=== PATIENT | female | born 1970 | race Caucasian/White ===

== ENCOUNTER → 2017-05-25 07:29 | Outpatient (CLI) | payer OTHER, SELFPAY ==
--- NOTE | 2017-05-25 07:33 | HPBI_ITS ---
MAMMOGRAPHY - BILATERAL SCREENING REASON FOR EXAM: Female, 46 years old. Routine annual screening examination. PERTINENT HISTORY: Non-contributory. TECHNIQUE: Digital bilateral breast talia (3D mammographic acquisition) in the CC and MLO projections. 2-D mediolateral oblique (MLO) and craniocaudad (CC) views of both breasts were obtained. CAD: Full Field Digital Mammography with Computer Added Detection was performed. COMPARISON: Comparison is made with prior study dated May 24, 2016. FINDINGS: Breast Composition: The breasts are extremely dense, which lowers the sensitivity of mammography. There are no dominant masses or suspicious calcifications. Stable bilateral benign appearing axillary lymph nodes. No other significant abnormalities are identified. There has been no significant change since the prior study. HPBI/SCREENING MAMM (CAD), BILAT IMPRESSION: Stable bilateral screening mammogram. Yearly follow-up mammogram recommended. (A) ASSESSMENT CATEGORY: BIRADS Category 2: Benign. A letter regarding these results will be sent to the patient by the facility within 30 days. Approximately 10% of breast cancers are not detected by mammography. A normal mammogram should not delay biopsy of a clinically suspicious abnormality. [id number] Electronically Signed: Marco Adams MD at 9:34 EDT Tel [phone], Service support ,
== END ==
PROVIDERS: Family Provider Preventive Medicine Occupational Medicine; PCP Preventive Medicine Occupational Medicine; Visit Provider Obstetrics & Gynecology
DX: Z12.31 Encounter for screening mammogram for malignant neoplasm of breast (principal)
CPT/HCPCS: 77063; 77067

== ENCOUNTER → 2018-06-19 07:11 | Outpatient (CLI) | payer OTHER, SELFPAY ==
--- NOTE | 2018-06-19 07:14 | BI_ITS ---
MAMMOGRAPHY - BILATERAL SCREENING REASON FOR EXAM: Female, 48 years old. Routine annual screening examination. PERTINENT HISTORY: Non-contributory. TECHNIQUE: Digital bilateral breast talia (3D mammographic acquisition) in the CC and MLO projections. 2-D mediolateral oblique (MLO) and craniocaudad (CC) views of both breasts were obtained. CAD: Full Field Digital Mammography with Computer Added Detection was performed. COMPARISON: Comparison is made with prior study dated May 25, 2017 and May 24, 2016. FINDINGS: Breast Composition: The breasts are extremely dense, which lowers the sensitivity of mammography. There are no dominant masses or suspicious calcifications. Stable small bilateral axillary lymph nodes. No other significant abnormalities are identified. There has been no significant change since the prior study. BI/SCREENING MAMM (CAD), BILAT IMPRESSION: Stable bilateral screening mammogram. Yearly follow-up mammogram recommended. (A) ASSESSMENT CATEGORY: BIRADS Category 2: Benign. A letter regarding these results will be sent to the patient by the facility within 30 days. Approximately 10% of breast cancers are not detected by mammography. A normal mammogram should not delay biopsy of a clinically suspicious abnormality. [id number] Electronically Signed: Marco Adams, at 10:29 EDT , Service support ,
== END ==
PROVIDERS: Family Provider Preventive Medicine Occupational Medicine; PCP Preventive Medicine Occupational Medicine; Referring Provider Obstetrics & Gynecology; Visit Provider Obstetrics & Gynecology
DX: Z12.31 Encounter for screening mammogram for malignant neoplasm of breast (principal)
CPT/HCPCS: 77063; 77067

== ENCOUNTER → 2019-06-21 | Outpatient (CLI) | payer OTHER, SELFPAY ==
[2018-11-17 08:12] VITALS: BMI 23.9
--- NOTE | 2019-06-21 07:12 | BI_ITS ---
MAMMOGRAPHY - BILATERAL SCREENING REASON FOR EXAM: Female, 49 years old. Routine annual screening examination. PERTINENT HISTORY: Non-contributory. TECHNIQUE: Digital bilateral breast avi (3D mammographic acquisition) in the CC and MLO projections. 2-D mediolateral oblique (MLO) and craniocaudad (CC) views of both breasts were obtained. CAD: Full Field Digital Mammography with Computer Added Detection was performed. COMPARISON: Comparison is made with prior study dated June 19, 2018 and May 25, 2017. FINDINGS: Breast Composition: The breasts are extremely dense, which lowers the sensitivity of mammography. There are no dominant masses or suspicious calcifications. Stable small benign appearing bilateral axillary lymph nodes. No other significant abnormalities are identified. There has been no significant change since the prior study. BI/SCREEN MAMM (CAD) W/AVI BILAT IMPRESSION: Stable bilateral screening mammogram. Yearly follow-up mammogram recommended. (A) ASSESSMENT CATEGORY: BIRADS Category 1: Negative. A letter regarding these results will be sent to the patient by the facility within 30 days. Approximately 10% of breast cancers are not detected by mammography. A normal mammogram should not delay biopsy of a clinically suspicious abnormality. [id number] Electronically Signed: Marco Adams, at 9:52 EDT , Service support ,
== END | disposition home or self-care (01) ==
LOC: OPBI 07:11
PROVIDERS: PCP Preventive Medicine Occupational Medicine; Referring Provider Obstetrics & Gynecology; Visit Provider Obstetrics & Gynecology
DX: Z12.31 Encounter for screening mammogram for malignant neoplasm of breast (principal)
CPT/HCPCS: 77063; 77067

== ENCOUNTER → 2020-08-15 07:14 | Outpatient (CLI) | payer OTHER, SELFPAY ==
[2018-11-17 08:12] VITALS: BMI 23.9
--- NOTE | 2020-08-15 07:17 | BI_ITS ---
MAMMOGRAPHY - BILATERAL SCREENING REASON FOR EXAM: Female, 50 years old. Routine annual screening examination. PERTINENT HISTORY: Non-contributory. TECHNIQUE: Digital bilateral breast avi (3D mammographic acquisition) in the CC and MLO projections. 2-D mediolateral oblique (MLO) and craniocaudad (CC) views of both breasts were obtained. CAD: Full Field Digital Mammography with Computer Added Detection was performed. COMPARISON: Comparison is made with prior examination dated 06/21/2019 and 06/19/2018. FINDINGS: Breast Composition: The breasts are extremely dense, which lowers the sensitivity of mammography. There are no dominant masses or suspicious calcifications. Stable small benign-appearing bilateral axillary lymph nodes. No other significant abnormalities are identified. There has been no significant change since the prior study. BI/SCRN MAMM (CAD)W/AVI BILAT IMPRESSION: Stable bilateral screening mammogram. Yearly follow-up mammogram recommended. (A) ASSESSMENT CATEGORY: BIRADS Category 2: Benign. A letter regarding these results will be sent to the patient by the facility within 30 days. Approximately 10% of breast cancers are not detected by mammography. A normal mammogram should not delay biopsy of a clinically suspicious abnormality. [id number] Electronically Signed: Marco Adams MD at 8:39 EDT , Service support ,
== END ==
PROVIDERS: PCP Preventive Medicine Occupational Medicine; Referring Provider Obstetrics & Gynecology; Visit Provider Obstetrics & Gynecology
DX: Z12.31 Encounter for screening mammogram for malignant neoplasm of breast (principal)
CPT/HCPCS: 77063; 77067

== ENCOUNTER → 2021-08-17 | Outpatient (CLI) | payer OTHER, SELFPAY ==
--- NOTE | 2021-08-17 07:08 | BI_ITS ---
MAMMOGRAPHY - BILATERAL SCREENING REASON FOR EXAM: Female, 51 years old. Routine annual screening examination. PERTINENT HISTORY: Non-contributory. TECHNIQUE: Digital bilateral breast avi (3D mammographic acquisition) in the CC and MLO projections. 2-D mediolateral oblique (MLO) and craniocaudad (CC) views of both breasts were obtained. CAD: Full Field Digital Mammography with Computer Added Detection was performed. COMPARISON: Comparison is made with prior study dated 08/15/2020 and 06/21/2019. FINDINGS: Breast Composition: The breasts are extremely dense, which lowers the sensitivity of mammography. There are no dominant masses or suspicious calcifications. Stable bilateral axillary lymph nodes. No other significant abnormalities are identified. There has been no significant change since the prior study. BI/SCRN MAMM (CAD)W/AVI BILAT IMPRESSION: Stable bilateral screening mammogram. Yearly follow-up mammogram recommended. (A) ASSESSMENT CATEGORY: BIRADS Category 2: Benign. A letter regarding these results will be sent to the patient by the facility within 30 days. Approximately 10% of breast cancers are not detected by mammography. A normal mammogram should not delay biopsy of a clinically suspicious abnormality. [id number] Electronically Signed: Marco Adams MD at 8:07 EDT ,
== END | disposition home or self-care (01) ==
PROVIDERS: PCP Preventive Medicine Occupational Medicine; Referring Provider Obstetrics & Gynecology; Visit Provider Obstetrics & Gynecology
DX: Z12.31 Encounter for screening mammogram for malignant neoplasm of breast (principal)
CPT/HCPCS: 77063; 77067

== ENCOUNTER → 2022-08-19 | Outpatient (CLI) | payer OTHER, SELFPAY ==
--- NOTE | 2022-08-19 07:18 | BI_ITS ---
MAMMOGRAPHY - BILATERAL SCREENING REASON FOR EXAM: Female, 52 years old. Routine annual screening examination. PERTINENT HISTORY: Non-contributory. TECHNIQUE: Digital bilateral breast avi (3D mammographic acquisition) in the CC and MLO projections. 2-D mediolateral oblique (MLO) and craniocaudad (CC) views of both breasts were obtained. CAD: Full Field Digital Mammography with Computer Added Detection was performed. COMPARISON: Comparison is made with prior study dated August 17, 2021 and August 15, 2020. FINDINGS: Breast Composition: The breasts are extremely dense, which lowers the sensitivity of mammography. There are no dominant masses or suspicious calcifications. Stable appearance of the small bilateral axillary lymph nodes. No other significant abnormalities are identified. There has been no significant change since the prior study. BI/SCRN MAMM (CAD)W/AVI BILAT IMPRESSION: Stable bilateral screening mammogram. Yearly follow-up mammogram recommended. (A) ASSESSMENT CATEGORY: BIRADS Category 2: Benign. A letter regarding these results will be sent to the patient by the facility within 30 days. Approximately 10% of breast cancers are not detected by mammography. A normal mammogram should not delay biopsy of a clinically suspicious abnormality. [id number] Electronically Signed: Marco Adams MD at 8:37 EDT ,
== END | disposition home or self-care (01) ==
PROVIDERS: PCP Preventive Medicine Occupational Medicine; Referring Provider Obstetrics & Gynecology; Visit Provider Obstetrics & Gynecology
DX: Z12.31 Encounter for screening mammogram for malignant neoplasm of breast (principal)
CPT/HCPCS: 77063; 77067

== ENCOUNTER → 2023-08-22 | Outpatient (CLI) | payer OTHER, SELFPAY ==
--- NOTE | 2023-08-22 07:28 | BI_ITS ---
MAMMOGRAPHY - BILATERAL SCREENING REASON FOR EXAM: Female, 53 years old. Routine annual screening examination. PERTINENT HISTORY: Non-contributory. TECHNIQUE: Digital bilateral breast avi (3D mammographic acquisition) in the CC and MLO projections. 2-D mediolateral oblique (MLO) and craniocaudad (CC) views of both breasts were obtained. CAD: Full Field Digital Mammography with Computer Added Detection was performed. COMPARISON: Comparison is made with prior study dated August 19, 2022 and August 17, 2021. FINDINGS: Breast Composition: The breasts are extremely dense, which lowers the sensitivity of mammography. There are no dominant masses or suspicious calcifications. Stable small benign-appearing bilateral axillary lymph nodes. No other significant abnormalities are identified. There has been no significant change since the prior study. BI/SCRN MAMM (CAD)W/AVI BILAT IMPRESSION: Stable bilateral screening mammogram. Yearly follow-up mammogram recommended. (A) ASSESSMENT CATEGORY: BIRADS Category 2: Benign. A letter regarding these results will be sent to the patient by the facility within 30 days. Approximately 10% of breast cancers are not detected by mammography. A normal mammogram should not delay biopsy of a clinically suspicious abnormality. [id number] Electronically Signed: Marco Adams MD at 8:36 EDT ,
== END | disposition home or self-care (01) ==
PROVIDERS: PCP Preventive Medicine Occupational Medicine; Referring Provider Obstetrics & Gynecology; Visit Provider Obstetrics & Gynecology
DX: Z12.31 Encounter for screening mammogram for malignant neoplasm of breast (principal)
CPT/HCPCS: 77063; 77067

== ENCOUNTER → 2024-04-12 | Outpatient (CLI) | payer OTHER, SELFPAY | END | disposition home or self-care (01) | LOC: LABSPEC 12:14 | PROVIDERS: PCP Preventive Medicine Occupational Medicine; Referring Provider Physician Assistant Surgical; Visit Provider Physician Assistant Surgical | DX: R82.90 Unspecified abnormal findings in urine (principal) | CPT/HCPCS: 87086 ==

== ENCOUNTER → 2024-08-22 | Outpatient (CLI) | payer OTHER, SELFPAY ==
--- NOTE | 2024-08-22 07:10 | BI_ITS ---
EXAM: SCRN MAMM (CAD)W/AVI BILAT DATE: 08/22/2024 CLINICAL HISTORY: F, Age 54 y/o , SCREENING No family history. BREAST CANCER RISK ASSESSMENT: Not assessed. TECHNIQUE: Bilateral screening digital breast tomosynthesis with 2D and 3D images. Computer aided detection. COMPARISON: Prior exam(s) dated August 22, 2023.. FINDINGS: TISSUE DENSITY: The breast tissue is extremely dense which lowers the sensitivity of mammography. Bilateral Breast Mammographic Findings: No significant masses, calcifications or other abnormalities are identified. Stable small benign-appearing axillary lymph nodes. No suspicious masses, areas of developing architectural distortion, or suspicious calcifications. There has been no significant interval change. BI/SCRN MAMM (CAD)W/AVI BILAT IMPRESSION: OVERALL FINAL ASSESSMENT: BIRADS 2 BENIGN FINDING RECOMMENDATION: Routine annual follow-up in 1 Year A letter with findings and recommendations will be mailed to the patient. Reading Location: [place] [id number]
--- OUTSIDE RECORDS SUMMARY | 2024-08-22 07:23 | XMS RPT_ITS | CCD ---
Author Organization [facility] Care Team Providers Care Bindery Manager Name Role Phone Humberto Robertson Primary Care Provider [phone] HUMBERTO ROBERTSON DO Primary Care Physician [phone] Humberto Robertson DO Primary Care Provider Humberto Robertson DO Primary Care Provider Humberto Robertson DO Primary Care Provider HUMBERTO ROBERTSON Primary Care Unavailable CRISTINA THAPA Attending Unavailable Humberto Robertson DO Primary Care Provider HENNA WHITE Attending Unavailable HUMBERTO ROBERTSON Primary Care Unavailable HENNA WHITE Attending Unavailable HUMBERTO ROBERTSON Primary Care Unavailable Humberto Robertson Primary Care Unavailable Luis Comer Attending Unavailable Humberto Robertson Referring Unavailable Humberto Robertson Primary Care Unavailable Gustabo Escalante Referring Unavailable Gustabo Escalante Attending Unavailable Cristina Thapa Referring Unavailable Cristina Thapa Attending Unavailable Humberto Robertson Primary Care Unavailable Humberto Robertson Primary Care Unavailable Gustabo Escalante Attending Unavailable Humberto Robertson Referring Unavailable Humberto Robertson Primary Care Unavailable Lila Sahu Attending Unavailable Humberto Robertson Referring Unavailable Medications Current Medications Medication Drug Class(es) Dates Sig (Normalized) Sig (Original) amLODIPine 5 mg / valsartan 160 mg oral tablet (11 sources) Dihydropyridine Calcium Channel Natty, Angiotensin 2 Receptor Natty Start: 03-26-2022 take 1 tablet by mouth once daily amlodipine-valsa rtan 5 mg-160 mg oral tablet Dose = 1 tab(s), Oral, qDay, # 90 tab(s), 3 Refill(s), Pharmacy: [facility]/pharmacy #[id number], Essential hypertension, 167, cm, 02/23/22 15:34:00 EST, Height, kg, 02/23/22 15:34:00 EST, Dosing Weight Start Date: 03/26/22 Status: Ordered Start: 11-17-2018 Amlodipine-Chanda sartan Active PO 90 November 17, 2018 8:12am Start: 07-22-2018 take 1 tablet by lisa th once daily amLODIPine-Valsartan 10-160 mg per tablet Take 1 tablet by mouth once daily. 3 07/22/2018 Active amLODIPine-valsa rtan (Exforge) 10-160 MG tablet Take by mouth. Active Comment on above: Take 1 tablet by lisa th once daily. Citracal Maximum + D 315 mg-6.25 mcg (250 intl units) oral tablet (1 source) Start: 02-23-2022 take 1 tablet by mouth twice daily Citracal Maximum + D 315 mg-6.25 mcg (250 intl units) oral tablet Dose = 1 tab(s), Oral, BID, # 60 tab(s), 0 Refill(s) Start Date: 02/23/22 Status: Ordered Inulin (6 sources) Start: 02-02-2019 FIBER CHOICE ORAL gram(s) =, Chewed, qDay, 0 Refill(s) 02/02/2019 Active Start: 02-02-2019 FIBER CHOICE O RAL gram(s) =, Chewed, qDay, 0 Refill(s) 0 02/02/2019 Active Start: 02-02-2019 Fiber Choice g nayan(s) =, Chewed, qDay, 0 Refill(s) Start Date: 02/02/19 Status: Ordered Comment on above: gram(s) =, Chewed, qDay, 0 Refill(s) magnesium oxide 250 mg oral tablet (1 source) Start: 02-23-2022 Magnesium 250 mg tablet Dose : 250 mg = 1 tab(s), Oral, qDay, with potassium 250mg total, 0 Refill(s) Start Date: 02/23/22 Status: Ordered MULTIPLE VITAMINS-MINERALS ER PO (4 sources) MULTIPLE VITAMINS-MINERALS ER PO Take by mouth. Active MULTIPLE VITAMIN S-MINERALS ER PO Take by mouth. 0 Active MULTIVITAMIN ORAL (5 sources) Start: 02-02-2019 take 1 tablet by mouth once daily MULTIVITAMIN ORAL Dose = 1 tab(s), Oral, Daily, 0 Refill(s) 02/02/2019 Active Start: 02-02-2019 take 1 tablet by lisa th once daily MULTIVITAMIN ORAL Dose = 1 tab(s), Oral, Daily, 0 Refill(s) 0 02/02/2019 Active Comment on above: Dose = 1 tab(s), Oral, Daily, 0 Refill(s) Multivitamin preparation (1 source) Start: 9 take 1 tablet by mouth once daily Multivitamin Dose = 1 tab(s), Oral, Daily, 0 Refill(s) Start Date: 02/02/19 Status: Ordered PARoxetine hydrochloride 10 mg oral tablet (1 source) Serotonin Reuptake Inhibitor Start: 3 PARoxetine 10 mg oral tablet Dose : 10 mg = 1 tab(s), Oral, qDay, Start with one half tab p.o. daily x2 to 3 days, then increase to 1 tab p.o. daily., # 30 tab(s), 1 Refill(s), Pharmacy: [facility]/pharmacy #[id number], Work-related stress, 167.5, cm, 08/24/22 15:22:00 EDT, Height Start Date: 08/24/22 Status: Ordered Completed/Discontinued Medications Medication Drug Class(es) Dates Sig (Normalized) Sig (Original) predniSONE 10 mg oral tablet (1 source) Start: 11-17-2018 End: 11-29-2018 Prednisone Discontinued 10 MG PO daily 30 November 17, 2018 8:18am November 29, 2018 12:07am Take 4 tabs once daily days 1-3 3 tabs once daily days 4-6 2 tabs once daily days 7-9 and 1 tab once daily days 10-12. Problems Active Problems Problem Classification Problem Date Documented Date Episodic/Chronic Allergic reactions (1 source) Irritant contact dermatitis due to plant; Translations: [Irritant contact dermatitis due to plants, except food] Episodic Essential hypertension (5 sources) Essential hypertension; Translations: [Hypertensive disorder] Onset: 12-10-2014 02-02-2019 Chronic Other and unspecified benign neoplasm (2 sources) Hemangioma of skin; Translations: [Hemangioma of skin and subcutaneous tissue] 05-26-2023 Episodic Other and unspecified benign neoplasm (3 sources) Multiple benign melanocytic nevi ; Translations: [Melanocytic nevi of right upper limb, including shoulder] 05-26-2023 Episodic Other female genital disorders (2 sources) Lesion of vulva; Translations: [Other specified noninflammatory disorders of vulva and perineum] Episodic Other screening for suspected conditions (not mental disorders or infectious disease) (7 sources) Patient encounter status; Translations: [Encounter for screening mammogram for malignant neoplasm of breast] Onset: 08-20-2024 Episodic Other skin disorders (3 sources) Seborrheic keratosis; Translations: [Other seborrheic keratosis] 05-26-2023 Episodic Other skin disorders (3 sources) Solar lentigo; Translations: [Other melanin hyperpigmentation] 05-26-2023 Episodic Residual codes; unclassified (1 source) History of atypical nevus; Translations: [Personal history of other specified conditions] 05-26-2023 Episodic Unclassified (2 sources) Patient encounter status 08-24-2022 Past or Other Problems Problem Classification Problem Date Documented Da te Episodic/Chronic Administrative/social admission (3 sources) Stress; Translations: [Persons encountering health services in other specified circumstances] Onset: 05-26-2023 08-24-2022 Episodic Cancer of cervix (7 sources) Cervical atypism; Translations: [Atypical squamous cells of undetermined significance on cytologic smear of cervix (ASC-US)] Onset: 07-26-2016 Resolved: 07-15-2017 07-15-2017 Episodic Genitourinary symptoms and ill-defined conditions (2 sources) Unspecified abnormal findings in urine; Translations: [Dysuria] Onset: 04-12-2024 Episodic Neoplasms of unspecified nature or uncertain behavior (3 sources) Neoplasm of uncertain behavior of skin; Translations: [Neoplasm of uncertain behavior of skin] Onset: 05-26-2023 05-26-2023 Episodic Other and unspecified benign neoplasm (1 source) Senile angioma; Translations: [Hemangioma of skin and subcutaneous tissue] Episodic Other and unspecified benign neoplasm (2 sources) Hemangioma of skin and subcutaneous tissue; Translations: [Hemangioma of skin and subcutaneous tissue] Onset: 05-26-2023 Episodic Other and unspecified benign neoplasm (2 sources) Melanocytic nevi of right upper limb, including shoulder; Translations: [Melanocytic nevi of right upper limb, including shoulder] Onset: 05-26-2023 Episodic Other and unspecified benign neoplasm (2 sources) Melanocytic nevi of trunk; Translations: [Melanocytic nevi of trunk] Onset: 05-26-2023 Episodic Other and unspecified benign neoplasm (2 sources) Melanocytic nevi of left upper limb, including shoulder; Translations: [Melanocytic nevi of left upper limb, including shoulder] Onset: 05-26-2023 Episodic Other and unspecified benign neoplasm (2 sources) Melanocytic nevi of right lower limb, including hip; Translations: [Melanocytic nevi of right lower limb, including hip] Onset: 05-26-2023 Episodic Other and unspecified benign neoplasm (2 sources) Melanocytic nevi of left lower limb, including hip; Translations: [Melanocytic nevi of left lower limb, including hip] Onset: 05-26-2023 Episodic Other skin disorders (2 sources) Other seborrheic keratosis; Translations: [Other seborrheic keratosis] Onset: 05-26-2023 Episodic Other skin disorders (2 sources) Other melanin hyperpigmentation; Translations: [Other melanin hyperpigmentation] Onset: 05-26-2023 Episodic Residual codes; unclassified (2 sources) Personal history of other specified conditions; Translations: [Personal history of other specified conditions] Onset: 05-26-2023 Episodic Results Test Name Value Interpretation Reference Range Facility 37 05-15-2024 37 Protecting Your Skin from the Sun The sun?s rays contain ultraviolet (UV) radiation that can damage our skin. There is no ?safe? ultraviolet ray. Even on cloudy days, UV radiation reaches the earth and can cause skin damage. Ultraviolet A (UVA) is primarily responsible for premature aging, wrinkles, and tanning, while ultraviolet B (UVB) causes sunburns. Both types can severely damage the skin and cause skin cancer. Sun exposure is the most preventable risk factor for all skin cancers, including melanoma. You can still have fun in the sun and decrease your risk for skin cancer. Apply water-resistant sunscreen generously with a Sun Protection Factor (SPF) of at least 30 that provides broad-spectrum protection from both ultraviolet A (UVA) and ultraviolet B (UVB) rays to all exposed skin. Re-apply every two hours, even on cloudy days, and after sweating or swimming. Sunscreens are not perfect because some ultraviolet light may still get through sunscreens, so they should not be used as a way of prolonging sun exposure. Seek shade when appropriate, remembering that the sun?s rays are the strongest between 10 AM and 4 PM. Wear sun protective clothing such as a long-sleeved shirt, pants, a wide-brimmed hat, and sunglasses, when possible. Some sunlight will get through your clothing. You can wear sunscreen underneath, or you can buy clothing that has been treated to give additional sun protection. Such clothing will have a UPF rating on the label. (e.g., www.Bioincept, Linksify.EventBoard om) Protect children from sun exposure by having them play in the shade, dressing them in protective clothing, and applying sunscreen. Use extra precaution when near water, snow, and sand. These surfaces reflect the damaging rays of the sun and can increase your chance of sunburn. Get vitamin D safely through a healthy diet that may include vitamin supplements. Don?t seek the sun for vitamin D. Avoid tanning beds. Ultraviolet light from the sun and tanning beds can cause wrinkling and skin cancer. If you want to look like you?ve been in the sun, consider using a sunless self-tanning product, but continue to use sunscreen with it. Perform a regular self skin exam. If you notice anything changing, growing, or bleeding on your skin, see a university professor. Skin cancer is very treatable when caught early. Examples of good broad-spectrum sunscreens: Blue Lizard Coppertone Spectra 3 [place] Block Neutrogena Ultra Sheer Dry Touch [facility] Block/Raheem Bennett MD What the active ingredients do: UVB blockers: padimate O homosalate, octyl methoxycinnamate, benzophenone octyl salicylate, phenylbenzimadazole sulfonic acid, octocrylene UVA blockers: oxybenzone, avobenzone (Parsol 1789) Physical blockers: titanium dioxide, zinc oxide (These are chemical-free sunscreens that reflect both UVA and UVB. These may be safest if you are allergic to some sunscreens. These may also be better for sensitive skin.) Normal [facility] Office Visiton 05-15-2024 Follow-up visit [id number] Mandi Bonilla 1970 F Date Provider Department Center 05/15/2024 58-HENNA WHITE [facility] None No family history on file Level of Service:45773 AR OFFICE/OUTPATIENT ESTABLISHED MOD MDM 30 MIN Reason for Visit and Comments: Skin Check [779] - William 05/26/2023 (kb) [facility] Progress Noteon 05-15-2024 Progress Note DATE OF SERVICE: 05/15/2024 PATIENT NAME: Mandi Bonilla : 1970 AGE: 53 y.o. CLINIC NUMBER: [id number] Visit type: Established patient Chief Complaint Patient presents with Skin Check [facility] 05/26/2023 (kb) Subjective HISTORY OF PRESENT ILLNESS: This is a 53 y.o. female who presents for evaluation of upper body check; last seen 05/26/2023. Patient denies any new changing, bleeding, or itching lesions. Patient has?h/o of ATN. Patient has no?h/o of AKs. ? Patient has no?personal h/o skin cancer. Patient has no?family h/o melanoma. Are you or ? No History of pacemaker/ defibrillator? No History of HIV/ Hep C? No Allergies to Lidocaine, Epinephrine, Latex or Adhesive? No Social History: Occupation: [employer]. Born/raised in [place]. Outdoor sports: no. 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 Patient does use additional sun protection Review of Systems There were no vitals filed for this visit. PHYSICAL EXAM GENERAL APPEARANCE:?Alert & oriented x3, pleasant. Well developed, well nourished. PSYCH: appropriate mood and affect DERMATOLOGY: (all measurements are in cm, unless otherwise noted) 1. Hemangioma of skin (2) Generalized, Left Flank Bright red vascular papule(s) Reassured and educated, benign finding. 2. Seborrheic keratosis (2) Generalized, Right Lower Back Escalera-brown waxy papule(s) and plaque(s) Reassured that this is a benign lesion and does not require any treatment. Educated that if the lesion changes color, becomes larger, bleeds, becomes bothersome or painful then it should be reevaluated. Patient expresses understanding and is agreeable to plan. 3. Solar lentigo (2) Generalized, Left Forearm - Posterior Light brown well-circumscribed macule(s) Educated and reassured, benign finding secondary to sun exposure. Patient educated on the proper use of sunscreen, SPF, and how often to reapply. Recommend use of OTC mineral sun block, like Neutrogena or La-Rob Posay. Patient advised to look for zinc or titanium as the active ingredient(s). Try to limit sun exposure to rehabilitator or late evening hours. Patient advised to perform self-skin checks and call for follow up appointment if any new or concerning lesions detected. 4. Encounter for skin care (2) Generalized, Right Forearm - Anterior SKIN TYPE: I Educated on signs of skin cancer, skin cancer causes, prevention, and risk of developing skin cancers in the future. Sun protection measures reviewed, recommended monthly self skin exams and annual full skin exam. 5. Multiple benign melanocytic nevi of both upper extremities, both lower extremities, and trunk (2) Chest - Medial (Center), Generalized Scattered uniform escalera/brown nevoid macules and papules; showing normal patterns with dermoscopy Reassured that this is a benign lesion and does not require any treatment. Educated that if the lesion changes color, becomes larger, bleeds, becomes bothersome or painful then it should be reevaluated. Patient expresses understanding and is agreeable to plan. Follow up in about 1 year (around 05/15/2025) for Recheck. Henna White PA-C 05/15/24 3:10 PM REFERRING MD: Normal [facility] Urine Cultureon 04-13-2024 URC Culture exhibits no growth. Normal [facility] Comment on above: Performed By: #### M [id number] #### [facility] Laboratory [address] [place], [address] Urgent Care Visit Reporton 0 04-12-2024 Urgent Care Visit Report [facility] [address], [address] [place], [place] [address] OFFICE VISIT Date of Service: 04/12/24 MR#: [id number] Acct: [id number] Name: MANDI BONILLA Rep #: [id number] : 1970 Provider: PENNY Chirinos Age/Sex: 53/F Location: [facility] Status: Signed Intake Vital Signs 04/12/24 09:38 Height 5 ft 5 in Weight: 189 lb 6 oz BMI 31.5 BP 136/70 H Blood Pressure Location Rt brachial Position Sitting Respiration 16 Pulse 79 Pulse Source NIBP Temp 98.4 F Temp Source Oral Pulse Oximetry (%) 98 Oxygen Delivery Method room air Intake Visit Reasons: CONCERN FOR UTI Chief Complaint: dysuria Corporate Legal Intern Required: No Is patient in pain?: No Allergies No Known Allergies Allergy (Verified 04/12/24 09:38) Medications ???Medication ???Instructions ???Recorded ???Confirmed ???Type amlodipine 10 mg-valsartan 160 mg PO #90 tabs 11/17/18 04/12/24 His tory tablet nitrofurantoin 1 cap PO Q12H 7 days #14 caps 03/1604/12/24 Rx monohydrate/macrocryst als 100 mg capsule Is last menstrual period known: No Post menopausal: Yes Patient : No Have you fallen in the past year?: No Nurse's Note: dysuria x 24 hours. concern for UTI. denies abd pain, back pain, fever PFSH Medical History Impetigo HTN (hypertension) Social History Smoking Status: Never smoker alcohol intake: never HPI HPI Chief Complaint: dysuria Details: MANDI BONILLA, is a 53 F who presents to the office today for complaint of dysuria and increasing urgency/frequency for the past 4 days. Patient denies hematuria. She has had no pelvic or abdominal pain. No fever, chills or sweats. No other associated symptoms or alleviating/aggravatin g factors. ROS Const Constitutional: No other (As above) Exam Const General: cooperative and healthy appearing Resp Effort Inspection: normal respiratory effort Auscultation: Bilateral: Clear to Auscultation Cardio Rate: regular rate Rhythm: regular rhythm GI Auscultation: normal bowel sounds General: No CVA tenderness Psych Appearance: grossly normal Mental Status: mental status grossly normal Coding Level of Care Code Off vis,est,level 3 Diagnoses Dysuria R30.0 Assessment and Plan Assessment and Plan (1) Dysuria: Status: Acute Orders: Orders POC Urinalysis Dip (Clinic) Today R30.0 - Dysuria Culture, Urine Today R82.90 - Unspecified abnormal findings in urine Medications: New nitrofurantoin monohyd/m-cryst 100 mg administer with a meal/food; swallow whole; do not open, crush, dissolve , or chew 1 cap PO Q12H 7 days 14 caps 0RF Plan Macrobid as prescribed today. Encouraged to get plenty of rest, drink lots of clear liquids, and use Tylenol or Ibuprofen (unless contraindicated) for fever and comfort. Patient also educated on other symptomatic management techniques. To be seen in 7-10 days if no improvement; sooner if worsening of symptoms. Patient advised of potential red flags and when appropriate to report to the ED. Patient verbalized understanding and agreement with all the above. Clinical Quality Measures Falls Risk Screening/Assistive Devices Have you fallen in the past year?: No 04/12/24 0946 Date Gustabo Garcia Signature: Date (if applicable) CC: Normal [facility] Urgent Care Visit Reporton 1 05-10-2023 Urgent Care Visit Report [facility] [address], [address] [place] [address] OFFICE VISIT Date of Service: 03/09/24 MR#: [id number] Acct: [id number] Name: MANDI BONILLA Rep #: [id number] : 1970 Provider: RHETT escobar Age/Sex: 53/F Location: [facility] Status: Signed Intake Vital Signs 11/17/18 08:12 12/27/24 16:21 Height 5 ft 7 in BP 122/60 H Blood Pressure Location Lt brachial Position Sitting Respiration 15 Pulse 92 Pulse Source NIBP Temp 98.1 F Temp Source Oral Pulse Oximetry (%) 96 Oxygen Delivery Method room air Intake Visit Reasons: EAR PAIN Chief Complaint: right ear pain Corporate Legal Intern Required: No Is patient in pain?: Yes Allergies No Known Allergies Allergy (Verified 03/09/24 16:21) Medications ???Medication ???Instructions ???Recorded ???Confirmed ???Type amlodipine 10 mg-valsartan 160 mg PO #90 tabs 11/17/18 11/17/18 History tablet Is last menstrual period known: No Post menopausal: No Patient : No Have you fallen in the past year?: No Nurse's Note: right ear pain and fullness x 2 weeks. has tried numerous home remedies without relief. denies fever/drainage/viral symptoms PFSH Medical History Impetigo HTN (hypertension) Social History Smoking Status: Never smoker alcohol intake: never HPI HPI Chief Complaint: right ear pain Details: MANDI BONILLA, is a 53 F who presents to the office today for evaluation of right pain and fullness x2 weeks. Patient reports for the last two weeks she has been having significant fullness to right ear. Reports she has tried warm compresses, Benadryl, all the home remedies you can think of without improvement in symptoms. Reports recent mild congestion. Denies any fevers or hx of recurrent ear infections. Denies have tympanic tubes. ROS ENT ENT: Positive for ear or mastoid pain and ear pressure Exam Const General: cooperative, healthy appearing, comfortable and no acute distress Orientation: alert, awake and oriented x3 HENMT Head: normal to inspection Ears: TM normal on the left and TM abnormal obstructed by cerumen on the right Throat: no postnasal drainage Resp Effort Inspection: normal respiratory effort, able to speak in complete sentences, symmetric chest movement, normal respiratory pattern, no audible wheezes and no cough Auscultation: Bilateral: Clear to Auscultation Cardio Rate: regular rate Rhythm: regular rhythm Heart Sounds: S1 normal and S2 normal Coding Level of Care Code Off vis,est,level 1 Diagnoses Impacted cerumen of right ear H61.21 Laterality: right Assessment and Plan Assessment and Plan (1) Cerumen impaction: Status: Acute Qualifiers: Laterality: right Qualified Code(s): H61.21 - Impacted cerumen, right ear Plan: Initially, unable to visualize right TM d/t cerumen obstruction. Right ear irrigated by nursing with significant results. Patient reports complete resolution of symptoms post irrigation. Right TM visualized post irrigation and was normal. Recommend OTC Debrox with recurrence. Discouraged use of Qtips. Clinical Quality Measures Falls Risk Screening/Assistive Devices Have you fallen in the past year?: No 03/09/24 1643 Date Lila Sahu GENERAL CLEANER-C Cosigner Signature: Date (if applicable) CC: Dr. Humberto Robertson, [facility] CNOVon 02-08-2024 CNOV Office Visit (OBGYWM ) MANDI BONILLA ([id number]) 1970 F Date Time Provider Department 02/08/24 4:00 PM CRISTINA THAPA OBGYWM During your visit today, we recorded the following information about you: Blood pressure Weight Height 128/76 85.5 kg 1.662 m Cristina Thapa MD 02/08/2024 4:21 PM Signed Patient declined suture winder hand. Mandi is a 53 year old who presents for an annual gynecologic exam without complaints. Not a lot of hot flashes. Postmenopausal: Menopausal- no bleeding HRT use: No. 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 Pap smear (cervix) Hypertension PAST SURGICAL HISTORY Procedure Laterality Date REFRACTIVE SURGERY OD (RIGHT EYE) Bilateral 07/31/2020 FAMILY HISTORY Problem Relation Age of Onset Hypertension Mother other (parkinsons) Father Dementia Father Diabetes Maternal Grandmother Emphysema Paternal Grandfather SOCIAL HISTORY Social History Tobacco Use Smoking status: Never Smokeless tobacco: Never Vaping Use Vaping status: Never Used Substance Use Topics Alcohol use: No Drug use: No REVIEW OF SYSTEMS Abdomen: No abdominal pain, nausea, vomiting, diarrhea, or constipation. No bloating, early satiety, indigestion, or increased flatulence. Bladder: No dysuria, gross hematuria, urinary frequency, urinary urgency, or incontinence Breast: No breast lumps, nipple d/c, overlying skin changes, redness or skin retraction Allergies and current medication updated:Yes SENSITIVE EXAM: The sensitive examination was discussed with the Patient or Patient's Authorized Soda Room Operator. As applicable, any other physician, advance practice provider, medical student, or other health professional student that will be observing or involved in the sensitive examination for educational or training purposes was discussed with the Patient or Authorized Soda Room Operator. The Patient or Authorized Soda Room Operator has agreed to proceed with the sensitive examination. (Sensitive examination includes inspection and/or palpation of the breasts, pelvis, prostate and anorectal regions). EXAM: LMP 12/04/2021 GENERAL: pleasant, female in no apparent distress HEENT: Normocephalic, atraumatic, mucus membranes moist, and no lesions NECK: Supple, full range of motion, no adenopathy, and thyroid normal DERMATOLOGY: Normal, without lesions, non-icteric, and non-hirsute BREAST: soft, non-tender, symmetric, no dominant mass, normal nipple-areolar complex, no lymphadenopathy, and no nipple discharge CHEST: Normal inspiratory effort ABDOMEN: soft, non-tender, and no masses PELVIC: external genitalia normal, normal Bartholin's glands, urethra, Aldie's glands, no vulvar lesions, no cervical lesions, good vaginal support, physiologic discharge present, normal appearing perineal body and perianal region BIMANUAL: uterus normal size, shape and consistency, no adnexal masses, and non-tender RECTOVAGINAL: deferred. NEURO: alert and oriented x3,exam grossly non-focal EXTREMITIES: normal ASSESSMENT/PLAN: 1) Health maintenance: Pap/HPV up to date. Mammogram ordered Colon cancer screening: up to date with screening 2) Follow up one year or sooner as needed Cristina Thapa MD Allergies As of Date: 02/08/2024 (No Known Allergies) Date Reviewed: 02/08/2024 Reviewed by: Cristina Thapa MD - Fully Assessed Reason for Visit: Well Woman [1463] Primary Visit Diagnosis:Encounter for gynecological examination (general) (routine) without abnormal findings [Z01.419] Other Visit Diagnosis:Encounter for screening mammogram for breast cancer [Z12.31] Order(s):[facility] [9136615] Order #: [id number] FUTURE Prescriptions as of 02/08/2024 - FIBER CHOICE ORAL gram(s) =, Chewed, qDay, 0 Refill(s) - MULTIVITAMIN ORAL Dose = 1 tab(s), Oral, Daily, 0 Refill(s) - amLODIPine-Valsartan 10-160 mg per tablet Take 1 tablet by mouth once daily. Problem List As Of Date 02/08/2024 Noted Resolved Low grade squamous intraepithelial lesion (LGSI*07/26/2016 07/15/2017 Papanicolaou smear of cervix with atypical squa*07/15/2017 Disposition: Return in 1 year (on 02/07/2025) for Annual Exam. Follow-up and Disposition History for Encounter Date Provider Department Center 02/08/2024 [id number] THAPA [facility] Encounter Nu (more content not included)... Normal [facility] 36on 01-30-2024 36 Returned call unable to leave voicemail ( never beeped to leave message, just heard static noises) Normal [facility] Visit Reporton 0 08-30-2023 Urgent Care Visit Report [facility] [address], [address] [place] [address] OFFICE VISIT Date of Service: 08/30/23 MR#: [id number] Acct: [id number] Name: MANDI BONILLA Rep #: [id number] : 1970 Provider: PENNY Shine Age/Sex: 53/F Location: [facility] Status: Signed Intake Vital Signs 11/17/18 08:12 08/30/23 17:40 Height 5 ft 7 in BP 132/82 H Blood Pressure Location Lt brachial Position Sitting Respiration 14 Pulse 88 Pulse Source Auscultation Temp 98.1 F Temp Source Oral Intake Visit Reasons: WOUND/BUMP ON CHEECK/L SIDE FACE Allergies No Known Allergies Allergy (Unverified 11/17/18 08:12) PFSH Medical History (Updated 08/30/23 @ 18:09 by Luis FRANCIS PA) Impetigo HTN (hypertension) Social History (Updated 11/17/18 @ 08:22 by Gustabo FRANCIS PA) Smoking Status: Never smoker alcohol intake: never HPI HPI Details: MANDI BONILLA, is a 53 F who presents to the office today for initial evaluation approximately 1 week history of erythematous lesion to left cheek with honey colored crusting of unknown etiology. PMH NC. No complaints of fever, chills, sweats. No topical or oral fnbx-uat-omngjda products have been tried to assist. No close contacts with similar complaints. No other associated symptoms and no other alleviating/aggravatin g factors. ROS Const Constitutional: No other (As above) Exam Const General: cooperative, healthy appearing and no acute distress Orientation: alert and awake HENMT Head: normal to inspection (See skin exam) Ears: hearing grossly normal bilaterally and external ears normal Nose: external nose normal Eyes General: appearance normal, both eyes and all related structures Neck Neck: normal visual inspection, no lymphadenopathy and no meningeal signs Chest Chest palpation inspection: normal inspection of the chest Resp Effort Inspection: normal respiratory effort and able to speak in complete sentences Cardio Rate: regular rate Pulses: radial pulses present Skin General: no rashes or lesions noted Other: Except approximately 0.5 cm diameter open erythematous lesion with honey colored crusting to left cheek of face Neuro General: patient alert and patient awake Cognition: normal cognition Speech: speech normal Psych Appearance: grossly normal Mental Status: mental status grossly normal Mood: congruent mood Affect: normal affect Speech and Movement: speech and movement normal Attitude: cooperative Coding Level of Care Code Off vis,new,level 3 Diagnoses Impetigo L01.00 Assessment and Plan Assessment and Plan (1) Impetigo: Status: Acute Plan: Amoxicillin as prescribed today. Skin care measures as instructed today. Follow-up with PCP in 3 to 5 days should symptoms not improve, sooner should symptoms only worsen or any other concerns develop. Patient states acknowledging understanding all the above. This note was generated with Bungles Junglesation software. It may contain incorrect words, spelling, and punctuation that were not noted in checking the note before signing. 08/30/23 1810 Date Luis Garcia Signature: Date (if applicable) CC: Normal [facility] 36on 05-31-2023 36 ----- Message from Henna White PA-C sent at 05/31/2023 2:26 PM EDT ----- Please call patient and notify them that the most recent skin biopsy is benign and shows no abnormal cells. At this time, no additional treatment is needed. Benign large freckle Normal [facility] Tissue examOrdered By: Kierra Mandujano on 05-31-2023 Case Report Surgical Pathology Case: [id number] Authorizing Provider: Henna White PA-C Collected: 05/26/2023 1324 Ordering Location: [facility] Received: 05/27/2023 1119 Dermatology Pathologist: Kierra Mandujano MD Specimen: DERM, Skin, Right Thigh - Anterior [facility] [employer] Work Phone: Clinical Information s9mkoIFkNEKkhXPjZBJ wNV mdtcHlEEOtyMOuN3Mfcwis XOpoYX9vXP3qtRlmtDHklP NkRQTuLcZfo6sjr943nJEi m3mkAHPAKEscVLVGOLg0zG hlN87dn7M6CdflF8caGGSl NVaxUUJiVCbyhZWpDCr6UH BhcGVydzEyMjQwXHBhcGVy fKF4OPQwBU6aikmyWYxqBF dtPFMewrN8QQYmeTTeT4Nw WAUiPH3huntfBSM0LFohDW LpTPO5TmAuPCTvu7Ctgzv1 MjBccGFyZFxwbGFpblxmcz XeKFBlYHLWUR3dwLOrqCKy NgQ5tkNyegFjdT5sMxQfXP Bkc0Iok3Yaj2qvwrYqKGW3 TH30NSdAA4XkKJVkX80nGi LHVK9saaOrEXGpyiLCMXZg PLFdmMTqIKOye8zaLWmvf0 Hou7cjL3wgolKfcAfpcyDz ho7pSJlpeTOeQSHiZXGpAI Hvj79lWFAlZkPpeeEeZdCz oh8dqbLbL5gbydQdCyhjna Jdeb1fNQwbvLNsqhUcrKOs V9lwzROKqGN4hDEnP1p3S9 wciMinHsGsRDSeoLc2GbMu MFxwYXJkXGludGJsXGNmMC HoXZ0wCAEfrlAyJZU7kLUc z3s9oKHudGTmv7TvQDkiKg N1oBz5PQEtZOcvPFDshItv oZ27Fdedch64UEQanuMgX7 YxXHBhcn0= [facility] [employer] Work Phone: Comment c1yapEMxJOOxbFPfNUOl NV tkbmZrSVGlfTIzX7Prbzyd VRrjWC1cAV8kuYbtcYJqaJ CnJDAaExOlz3sml507dPBv w3oiOSGQWHbgQGICHBd0eX gkX85pj0E6NbgbZ53inDAj RRO3WRDmPTCmbSCzUTJtET O1GRUksMSwL5jyBDZbPG6b bhsvCHciFPtwRAPvlVQ9AH OnxENnU2QhWTLfZFviLGYy rib8RcGaJx0ybNSsfDaiZV xwYXJkXHBsYWluXGZzMjAg TZBcFKLgAVjnNS4xRHR9fr NijU1uaS3aHXsfDfpptH6p lCdaiiY6fbKqgBujHYE1GI YsgLRequNaYGJ6pq3rXEQa hSHyuTMskYVaPVnjqb7zwN PrOyDmMXXju32dgUDvhz87 DKDyWA9sCGUWzVwtmDGbcI YoUNVbg1qdQ7voMHWqxlMj oTY2lS5aFIxnSGVtG82vsJ VuZGVkLlxwYXJ9 [facility] [employer] Work Phone: Disclaimer p2ylgFAcCTIagNEuKnCw MD ZkESKji0oqAPAsrOMvCnVh MzNcZnRuYmpcdWMxXGRlZm Ofh2mhm902rQFak3unCGFl WxY7oFEbAJViB97gPAIYH4 43PGZzFHeyf0eow7BfGJXj nXLte8W5YRJNBWbxYWOSAR l7xNoqJ11ke7Y5MdruX1ac LMPvUOWhQ5KlXP9kIRJiMz a2XHE3TRI8YZOnAFVxL3Gi UL8sIELqzFIeSXk4r5xnmT jkSZLuQDW1b8gbPMksdaJg TH2fqg3jnWl1h2txjfIdXS KtDSRanCWTVZOzM1WdaRfz Xz7ciCb8xXheIdtbSRY8Rq k3HK4mwn94zyb5yKdvPXOd mvipXwD4XFxmHESsdoevCD j9FWzsNNJhgEW3LWGqlKWm H8WsGPMjOG2yxmx1IPK9VY bgIMLuIxQ8LLRfoGUyMTPp sSrmLJlfg554XWU1FkDmDV 7hB4Mhh6E4pH6tzGUyGOIr mZUvZmJqGJDsdd6vyAFrRA wwx7GjWYU4caK5xQSjcOKc AGXjEF98Jincs4UbRyprTF C3CBBvcwLxj6Dgd5zgYnOt ldWcZ6viG0UbIYSjPBKfVY XuRsYtvuSrc0Gws7HrdTSw mAq0d5uvRDSbETBomJskq2 rtLXX8GXKmW3H8zKDoj0on KBicLEDacEH5mnK1WQCefS FvT5BdwW4gQZZkGK1dnwd6 b7ktCRD3HIvsTATdIfP2hi E5UTUqwGIrICXrmJoiMTsd z679ELY3XxLjQQBec4DuW0 HqbTxnM79paQwaS08vTUWn bZfupO7kwHwuxX2bSgSwKf MyNFxxbFxwbGFpblxmMVxm ggF3SVgurugsKEEbEQuxY2 snNmQuSYPigEgtZPckw4Hf YEWkSHNgRTZeJAmdQ9tuzE 2yllodUKhxUUWxoGyda3bd AnJixZR9IC9gekZmTAPdxW aacdT0yvCdaYhacR3rvO7c yJbvyT2ifKNwpTV7pwjyJZ luIHNpdHUgaHlicmlkaXph mZdugxexgJ2zPWB5aPMdHQ L1eDAmOESmFDQoWNFnyN56 ap9oqGJazeWmG6EqH2PwzX OiqGraDfhrpKCwkFStNj2l bTEuPH0sDNMqlXDrJ8MdVM 4gXHBhclxwYXIgVGhlIHVz LFXyTnQknxAoi3ZizA8fXN BoKKHyLI62rpBnppW4bEXp YWJvdmUgdGVzdHMgaXMgcm VndWxhdGVkIGFzIGFuIGFu YRi1jARns2DjO0vzfXQiqn EnN0EyoTGvWPGTRU3oGLdp y1AdeKHjzYMxf0WuOUQaYV PxuQ8bTVQeSW0dCUPhVDvb RYKdkfIpzm7zsdUmJLDfZV NfE2MjbrtzeDyyaaAkPQMa wb5jnoNjSLN1HHQyUGHssY bwnLYxfGAnRLVeysB6n2Ub SYEsf5SaP2YpnPFdXOMyiO UoPNP2u5OwxQ4bTMlviGSq FMCuDY8gzSYsOXUiBJMeIF FyZWQgYnkgdGhlIFVTIEZv o5YdUT5vZANczEzoZTZaqC 1hl6SbSEIzj21qDFWICQcw IFRoZSBGREEgaGFzIGRldG VybWluZWQgdGhhdCBzdWNo FBXtOXTqSU0yTQOpdtUwsC Kog6NzxSTdsjUtw6XxacLw FTScUHO5KkXcmYFuVROmhe FHuQhugH3osN5xk8WxrT7c UEskraLtyWMxOk3muKFxGJ 9uIHBhcmFmZmluIGVtYmVk SZXgIECmo7E0OJ6nFLChgs 0btubnpIWstW6reJPvrrHl SS1rOA2qO9N1fEAgOLVcyw Fls3ciWOw4iGTyIWAryTMn vPYcXoznZHS5DRMoXSZ3nh QbnqIrBMBcaHtdzBX7xSFj ZHQrLCIlEAGbEN28B3Prp1 KfS1ikLB98WVLtRGMlQRVd zzCkq1vrDGSpc8ogZPWurP BvB6VmNKVjcMZxbzlcVhMs TSN9YNMiCIC3mMYdIOTyL1 MqaJMcoPXtiN18CX6prDM8 ZF0eGGJ1TXnfjL9fPrRHwZ 61tj5yaOI4d5WwRY6nZ7Id MMYkd6S4fjNcDFCuYY6puW BiZWVuIHZhbGlkYXRlZCBv rsEkVJYsxSCxXzkvWOB7nC WbxFVjFqTGBYZ2fPPjVVPh o4EuDWKiBLYmfxQgcgYjIA LoNDL9rUQkRVUskHAld00z Z1n1OC7frNitVSTtqDYySR Wfq0KkcFXwfLt2lWYwSySc WQhxJKNhDNrygQj7aZH5PK 8cUDRpW5RvI2creLGzWOUq RBTkxKHzhf2jnUAmbL== [facility] Work Phone: Gross Description x4rcuPUhAYZtpYQjOBLb NV ninjLbMZTguSCtS6Nylcdb ZGvpJQ1gNK7uqRdrvZXwhM FyBUHzMtJdt7dqt031pEDz s6bdLMCOYCgkVGJYTHw0aL xtJ71dn9M7UkacA72ijVKx ZKY2TZNnNBJuuNBkLZBeMF I6PGApiHHhW8sjENUmBB8g arplCNkyZOarDMTzoIJ1AW ZgpYWyS9VgBQCxMYkgDPLm ldk0OjJcYp3umKCaqPjlKC xwYXJkXHBsYWluXGZzMjAg MoWyRBs8IHOnkY8nEv9vkW IdfO1qxXUnWZdpJJPnuyth gNSmqDyqM1eyGRGlthRufa nhyhWdvDSdFAEke2gzUODo HNYzICPxg8OuiRXmwNNmpC 4tvgR7cXM9LU2mJWC2ajCe WOKyScJ8UVCwQsCtnK8lQN ItOBVse1hcHPG1ytUwW7Mq aXMgbGlnaHRseSBwaWdtZW 80UYYnCQ8tPHXckMMpn4Pd iTVfKx3dJDWaaYrqIFNtaE leBJ03FPQfPYBhUSU7lHS4 IS9tPMO7hiPqLTZrSbV6AA MfSvLuzS7mQLErFGWwfYWm sX1osgHysoA4kkupPVW8AI VhMQ7xOLFnhChtWOv4VHJ7 Ot4bxAUiIUMuzmIbfaOqE3 Fvj7P9lJVpKBVpcj5= [employer] Phone: Pathologist Interpretation Location [facility], [address] [place] [address], [facility] [address], CLIA: [id number]; Joint Commission: HCO [id number]; CAP: [id number] [facility]: Pathology report final diagnosis Narrative s8iqxOKyPAAmpWAuHIMrUL kdqqQuHKGlcWNvB5Xppmbv MWtwOT6oOY0zuGdvrMYtfR OhLJUlYhGze2uyr790cRHb u0oyZGNWCIkbJOCGOTs9bU zbS48ip7O7KqnkY52xiEZd ZCF4XKRgJXLoqJVwAFExWQ U5TUFwvPApL5jdKLMlBP2l rsanGDnvLYzqBQCzuKG5TB WofBRpO0FxMUHeVUosMUJs ulv4DnUuNf7rjCWkhOikIG xwYXJkXHBsYWluXGZzMjAg S8idbnbicteseDNlxSmbY4 emUW4iZOEuXIShyNRlzZ0y RzjkZTRmsNNvFEShRgm2UN VyYbPNML80yGigWOmeANQq V24jjSRwcRmtMHQssf6= [employer] Phone: [employer] h0mygCXcLJGucAZyRPOz NV mgepTzXNHvaBCrQ9Jevgvu LOsoXY8lVJ8uwFdniEBjmO PqUOOaFrZbp0sul221fSXh x2bsNFNATByeTUBPOVq4kI doA46gg5W8VltdT23plAMe JDA5UAPaSEYhsHUuAMSkSA O4ZAKuzPVmE0nrQESnIT8k owxzEKqiTRpnEIVahTJ2EN ZwdIXkD8ZhBBRzRByoCXCf npk7IfYkXs2zrNSiaIiaNJ xwYXJkXHBsYWluXGZzMjAg LF6mvN5vdOpmkN0izMCatA NhbCBzdGFpbnMgYXJlIHBl csOuuc6wGQLcyA65LXAnTX Bks2zhe7cecee2TWLhFMQD YFCaHX6oLVWRZWQmJCvbI4 hsaWdodCByYXJlIHNjYXR0 XUJyCMRrGEfhbs8hsHUlem pof8SrvE7rlArlWyQ1qDHz KlcsRComQJuiD46js2imEf xwYXJ9 [employer] Phone: [employer] Phone: Lesion biopsyon 05-26-2023 Type of biopsy: tangential Informed consent: discussed and consent obtained Timeout: patient name, date of , surgical site, and procedure verified Procedure prep: Patient was prepped and draped in usual sterile fashion Prep type: Isopropyl alcohol Anesthesia: the lesion was anesthetized in a standard fashion Anesthetic: 1% lidocaine w/ epinephrine 1-100,000 buffered w/ 8.4% NaHCO3 Instrument used: DermaBlade Hemostasis achieved with: electrodesiccation Outcome: patient tolerated procedure well Post-procedure details: sterile dressing applied and wound care instructions given Dressing type: pressure dressing and bandage [facility] Office Visiton 05-26-2023 Follow-up visit [id number] Mandi Bonilla 1970 F Date Provider Department Center 05/26/2023 Car-HENNA WHITE [facility] None No family history on file Level of Service:52816 [place] OFFICE/OUTPATIENT ESTABLISHED MOD MDM 30 MIN (25) Reason for Visit and Comments: Annual Exam [83] - WILLIAM 05/25/2022 (KB) Normal [facility] PATINSon 05-26-2023 PATINS Protecting Your Skin from the Sun The sun?s rays contain ultraviolet (UV) radiation that can damage our skin. There is no ?safe? ultraviolet ray. Even on cloudy days, UV radiation reaches the earth and can cause skin damage. Ultraviolet A (UVA) is primarily responsible for premature aging, wrinkles, and tanning, while ultraviolet B (UVB) causes sunburns. Both types can severely damage the skin and cause skin cancer. Sun exposure is the most preventable risk factor for all skin cancers, including melanoma. You can still have fun in the sun and decrease your risk for skin cancer. Apply water-resistant sunscreen generously with a Sun Protection Factor (SPF) of at least 30 that provides broad-spectrum protection from both ultraviolet A (UVA) and ultraviolet B (UVB) rays to all exposed skin. Re-apply every two hours, even on cloudy days, and after sweating or swimming. Sunscreens are not perfect because some ultraviolet light may still get through sunscreens, so they should not be used as a way of prolonging sun exposure. Seek shade when appropriate, remembering that the sun?s rays are the strongest between 10 AM and 4 PM. Wear sun protective clothing such as a long-sleeved shirt, pants, a wide-brimmed hat, and sunglasses, when possible. Some sunlight will get through your clothing. You can wear sunscreen underneath, or you can buy clothing that has been treated to give additional sun protection. Such clothing will have a UPF rating on the label. (e.g., www.[employer], www.[employer] om) Protect children from sun exposure by having them play in the shade, dressing them in protective clothing, and applying sunscreen. Use extra precaution when near water, snow, and sand. These surfaces reflect the damaging rays of the sun and can increase your chance of sunburn. Get vitamin D safely through a healthy diet that may include vitamin supplements. Don?t seek the sun for vitamin D. Avoid tanning beds. Ultraviolet light from the sun and tanning beds can cause wrinkling and skin cancer. If you want to look like you?ve been in the sun, consider using a sunless self-tanning product, but continue to use sunscreen with it. Perform a regular self skin exam. If you notice anything changing, growing, or bleeding on your skin, see a university professor. Skin cancer is very treatable when caught early. Examples of good broad-spectrum sunscreens: Blue Lizard Coppertone Spectra 3 Clinique [place] Block Neutrogena Ultra Sheer Dry Touch Vanicream Solbar Total Block/Raheem Bennett MD What the active ingredients do: UVB blockers: padimate O homosalate, octyl methoxycinnamate, benzophenone octyl salicylate, phenylbenzimadazole sulfonic acid, octocrylene UVA blockers: oxybenzone, avobenzone (Parsol 1789) Physical blockers: titanium dioxide, zinc oxide (These are chemical-free sunscreens that reflect both UVA and UVB. These may be safest if you are allergic to some sunscreens. These may also be better for sensitive skin.) [facility] Progress Noteon 05-26-2023 Progress Note DATE OF SERVICE: 05/26/2023 PATIENT NAME: Mandi Bonilla : 1970 AGE: 52 y.o. CLINIC NUMBER: [id number] Visit type: Established patient Chief Complaint Patient presents with Annual Exam WILLIAM 05/25/2022 (KB) Subjective HISTORY OF PRESENT ILLNESS: Mandi Bonilla is a 52 y.o. who presents to the office for a check up. Patient's last FSE was done on 05/25/2022. Patient has a history of; Mild Atypical nevi Mild ATN L upper back 2007, R lateral thigh and L lower back 2010 Patient has a history of severe sunburn in the past. Patient has?h/o of ATN. Patient has no?h/o of AKs. ? Patient has no?personal h/o skin cancer. Patient has no?family h/o melanoma. Are you or ? No History of pacemaker/ defibrillator? No History of HIV/ Hep C? No Allergies to Lidocaine, Epinephrine, Latex or Adhesive? No Social History: Occupation: [employer]. Born/raised in [place]. Outdoor sports: no. 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 Patient does use additional sun protection Review of Systems Dermatology: as per HPI, otherwise negative There were no vitals filed for this visit. PHYSICAL EXAM: GENERAL APPEARANCE:?alert and oriented x3, well developed and well nourished. PSYCH: appropriate mood and affect DERMATOLOGY: Please see diagram of patient examination (all noted lesions were examined dermoscopically; all measured lesions are pigmented macules with benign nevus patterns, unless otherwise noted) 1. Hemangioma of skin (2) Generalized, Left Flank Bright red vascular papule(s) Reassured and educated, benign finding. 2. Seborrheic keratosis (2) Generalized, Right Lower Back Escalera-brown waxy papule(s) and plaque(s) Reassured that this is a benign lesion and does not require any treatment. Educated that if the lesion changes color, becomes larger, bleeds, becomes bothersome or painful then it should be reevaluated. Patient expresses understanding and is agreeable to plan. 3. Solar lentigo (2) Generalized, Left Forearm - Posterior Light brown well-circumscribed macule(s) Educated and reassured, benign finding secondary to sun exposure. Patient educated on the proper use of sunscreen, SPF, and how often to reapply. Recommend use of OTC mineral sun block, like Neutrogena or La-Rob Posay. Patient advised to look for zinc or titanium as the active ingredient(s). Try to limit sun exposure to rehabilitator or late evening hours. Patient advised to perform self-skin checks and call for follow up appointment if any new or concerning lesions detected. 4. Encounter for skin care (2) Generalized, Right Forearm - Anterior SKIN TYPE: I Educated on signs of skin cancer, skin cancer causes, prevention, and risk of developing skin cancers in the future. Sun protection measures reviewed, recommended monthly self skin exams and annual full skin exam. 5. Multiple benign melanocytic nevi of both upper extremities, both lower extremities, and trunk (2) Chest - Medial (Center), Generalized Scattered uniform escalera/brown nevoid macules and papules; showing normal patterns with dermoscopy Reassured that this is a benign lesion and does not require any treatment. Educated that if the lesion changes color, becomes larger, bleeds, becomes bothersome or painful then it should be reevaluated. Patient expresses understanding and is agreeable to plan. 6. History of atypical nevus (3) Right Thigh - Anterior; Left Upper Back; Left Lower Back Continue to montior 7. Neoplasm of uncertain behavior of skin Right Thigh - Anterior 2 mm escalera macule with surrounding white halo Lesion biopsy Type of biopsy: tangential Informed consent: discussed and consent obtained Timeout: patient name, date of , surgical site, and procedure verified Procedure prep: Patient was prepped and draped in usual sterile fashion Prep type: Isopropyl alcohol Anesthesia: the lesion was anesthetized in a standard fashion Anesthetic: 1% lidocaine w/ epinephrine 1-100,000 buffered w/ 8.4% NaHCO3 Instrument used: DermaBlade Hemostasis achieved with: electrodesiccation Outcome: patient tolerated procedure well Post-procedure details: sterile dressing applied and wound care instructions given Dressing type: pressure dressing and bandage Specimen A - Tissue exam Differential Diagnosis: ATN vs Halo Nevi Check Margins: No Biopsy recommended. Patient expresses understanding and is in agreement with the plan. Biopsy (x1) obtained today. Patient educated that we will call with the biopsy results within 2 weeks. Care instructions reviewed and written instructions provided to patient. On this date, I have spent 30 minutes reviewing previous notes, test results and face to face with the patient discussing the diagnosis and importance of compliance with the treatment (more content not included)... Normal [facility] LABORATORYOrdered By: Ricki Armstrong on 08-27-2022 Cholesterol [Mass/Vol] 226 mg/dL Invalid Interpretation Code 0 - 200 mg/dL AO ADM SS Cholesterol in HDL [Mass/Vol] 73 mg/dL Invalid Interpretation Code 40 - 60 mg/dL AO ADM SS Cholesterol in LDL [Mass/Vol] 141 mg/dL Invalid Interpretation Code 0 - 130 mg/dL AO ADM SS Triglyceride [Mass/Vol] 62 mg/dL Invalid Interpretation Code 0 - 150 mg/dL AO ADM SS HCG QUAL UR B/Oon 01-26-2022 status Negative neg [facility] Quality Check Yes [facility] COVIDon 02-01-2020 Date of Onset [id number] [facility] ([place]) Comment on above: Performed By: #### C OVID #### [address] [address] Employed in Healthcare No [facility] [place] Comment on above: Performed By: #### C OVID #### [address] [place] [address] [place], [place] [address] First Test Yes [facility] ([place] Comment on above: Performed By: #### C OVID #### [place] [place] [address] [place] [address] Hospitalized No [facility] [place] Comment on above: Performed By: #### C OVID #### [address] [address] ICU No [facility] [place] Comment on above: Performed By: #### C OVID #### [address] [place] [address] Not [facility] ([place] Comment on above: Performed By: #### C OVID #### [address] [address] Resides in Congregate Care Setting No [facility] ([place] Comment on above: Performed By: #### C OVID #### Kd [address] [address] SARS-CoV-2 (COVID-19) RNA GEORGI+probe Ql (Unsp spec) See Below [facility] ([place]) Comment on above: Result Comment: Naso pharyngeal Swab Performed By: [facility] [address] [place] [address] Veterinary Pharmacologist: Myke Joseph III#: [id number] Phone#: Performed By: #### C OVID #### Kd [address] [address] Result Comment: Nega tive Negative for COVID19 (SARS CoV2) by PCR. This test was developed and its performance characteristics determined by [facility]'s [facility] [place]. This test has been authorized by FDA under an Emergency Use Authorization (EUA). This test has been validated in accordance with the FDA's Guidance Document Policy for Diagnostics Testing in Laboratories Certified to Perform High Complexity Testing under CLIA prior to Emergency use Authorization for Coronavirus Disease 2019 during the Public Health Emergency issued on May 12, 2019. Performed By: [facility] [address] [place] [address] Veterinary Pharmacologist: Bairon Yeung III, M.D. CLIA#: [id number] Phone#: Symptomatic as Defined by CDC Yes Normal [facility] ([place]) Comment on above: Performed By: #### C OVID #### [address] [address] .GFRon 08-11-2019 GFR 96 ml/min/1.73sqm Normal [facility] ([place]) Comment on above: Result Comment: GFR Population mean for , Non- Americans Ages 20-29 = 116 mL/min/1.73 sq.m. Ages 30-39 = 107 mL/min/1.73 sq.m. Ages 40-49 = 99 mL/min/1.73 sq.m. Ages 50-59 = 93 mL/min/1.73 sq.m. Ages 60-69 = 85 mL/min/1.73 sq.m. Ages 70+ = 75 mL/min/1.73 sq.m. Chronic Kidney Disease: Less than 60 mL/min/1.73 square meters End Stage Renal Disease: Less than 15 mL/min/1.73 square meters Performed By: #### C MP, GFR #### [address] [place], [place] [address] GFR Non- 79 ml/min/1.73sqm Normal [facility] ([place]) Comment on above: Result Comment: GFR Population mean for , Non- Americans Ages 20-29 = 116 mL/min/1.73 sq.m. Ages 30-39 = 107 mL/min/1.73 sq.m. Ages 40-49 = 99 mL/min/1.73 sq.m. Ages 50-59 = 93 mL/min/1.73 sq.m. Ages 60-69 = 85 mL/min/1.73 sq.m. Ages 70+ = 75 mL/min/1.73 sq.m. Chronic Kidney Disease: Less than 60 mL/min/1.73 square meters End Stage Renal Disease: Less than 15 mL/min/1.73 square meters Performed By: #### C MP, GFR #### [address] [address] CMPon 08-11-2019 Albumin Level 3.8 G/dL Normal 3.5-5.0 [facility] ([place]) Comment on above: Performed By: #### C MP, GFR #### [address] [address] Albumin/Globulin [Mass ratio] 1.2 {ratio} Normal 1.1-2.5 [facility] ([place]) Comment on above: Performed By: #### C MP, GFR #### [address] [address] ALP [Catalytic activity/Vol] 53 U/L Normal 40-135 [facility] ([place]) Comment on above: Performed By: #### C MP, GFR #### [address] [address] ALT [Catalytic activity/Vol] 18 U/L Normal 10-35 [facility] ([place]) Comment on above: Performed By: #### C MP, GFR #### [address] [address] AST [Catalytic activity/Vol] 14 U/L Normal 10-40 [facility] ([place]) Comment on above: Performed By: #### C MP, GFR #### [address] [address] Bili Total 0.7 mg/dL Normal 0.2-1.0 [facility] ([place]) Comment on above: Result Comment: Use of this assay is not recommended for patients undergoing treatment with eltrombopag due to the potential for falsely elevated results. Performed By: #### C MP, GFR #### [address] [address] BUN/Creatinine Ratio 19 ratio Normal 7-27 [facility] ([place]) Comment on above: Performed By: #### C MP, GFR #### [address] [address] Calcium [Mass/Vol] 8.6 mg/dL Normal 8.4-10.2 Replaced by [facility] ([place]) Comment on above: Performed By: #### C MP, GFR #### [address] [address] Chloride [Moles/Vol] 104 mmol/L Normal 98-107 [facility] ([place]) Comment on above: Performed By: #### C MP, GFR #### [address] [address] CO2 [Moles/Vol] 28 mmol/L Normal 22-29 [facility] ([place]) Comment on above: Performed By: #### C MP, GFR #### [address] [address] Creatinine [Mass/Vol] 0.78 mg/dL Normal 0.55-1.02 [facility] ([place]) Comment on above: Performed By: #### C MP, GFR #### [address] [address] Electrolyte Balance 7.0 mEq/L Normal [facility] ([place]) Comment on above: Performed By: #### C MP, GFR #### [address] [address] Globulin 3.2 G/dL Normal [facility] ([place]) Comment on above: Performed By: #### C MP, GFR #### [address] [address] Glucose [Mass/Vol] 93 mg/dL Normal 70-105 Replaced by [facility] [place] Comment on above: Performed By: #### C MP, GFR #### [address] [address] Potassium [Moles/Vol] 4.7 mmol/L Normal 3.5-5.1 [facility] ([place]) Comment on above: Performed By: #### C MP, GFR #### [address] [place], [place] [address] Sodium [Moles/Vol] 139 mmol/L Normal 136-145 Replaced by [facility] [place] Comment on above: Performed By: #### C MP, GFR #### [address] [place], [place] [address] Total Protein 7.0 G/dL Normal 6.4-8.2 [facility] ([place]) Comment on above: Performed By: #### C MP, GFR #### [address] [place], [place] [address] Urea nitrogen [Mass/Vol] 15 mg/dL Normal 7-18 [facility] ([place] Comment on above: Performed By: #### C MP, GFR #### [address] [address] [facility] U Creatinine 20.5 mg/dL Normal [facility] ([place] Comment on above: Performed By: #### M ALBR #### [address] [address] U Microalb 554 mcg/dL Normal [facility] ([place]) Comment on above: Performed By: #### M ALBR #### [address] [address] U Ratio Alb/Cre 27.0 ratio High 0.0-24.9 [facility] ([place]) Comment on above: Performed By: #### M ALBR #### [address] [address] Vital Signs Date Time Vital Sign Value Performing Clinician Carey parker 02-08-2024 16:06-0500 Body height 166.2 cm Cristina Thapa MD Work Phone: [facility] 02-08-2024 16:06-0500 Body mass index (BMI) [Ratio] 30.97 kg/m2 Cristina Thapa MD Work Phone: [facility] 02-08-2024 16:06-0500 Body weight 85.55 kg Cristina Thapa MD Work Phone: [facility] 02-08-2024 16:06-0500 Diastolic blood pressure 76 mm[Hg] Cristina Thapa MD Work Phone: [facility] 02-08-2024 16:06-0500 Systolic blood pressure 128 mm[Hg] Crsitina Thapa MD Work Phone: [facility] 01-10-2023 15:59-0400 Body height 166.4 cm Cristina Thapa MD Work Phone: [facility] 01-10-2023 15:59-0400 Body weight 80.29 kg Cristina Thapa MD Work Phone: [facility] 01-10-2023 15:59-0400 Diastolic blood pressure 76 mm[Hg] Cristina Thapa MD Work Phone: [facility] 01-10-2023 15:59-0400 Systolic blood pressure 124 mm[Hg] Cristina Thapa MD Work Phone: [facility] 01-26-2022 15:31-0500 Body weight 80.74 kg Cristina Thapa MD Work Phone: [facility] 01-26-2022 15:31-0500 Diastolic blood pressure 74 mm[Hg] Cristina Thapa MD Work Phone: [facility] 01-26-2022 15:31-0500 Systolic blood pressure 124 mm[Hg] Cristina Thapa MD Work Phone: [facility] 01-04-2022 15:40-0400 Body height 168.3 cm Cristina Thapa MD Work Phone: [facility] 01-04-2022 15:40-0400 Body weight 79.2 kg Cristina Thapa MD Work Phone: [facility] 01-04-2022 15:40-0400 Diastolic blood pressure 62 mm[Hg] Cristina Thapa MD Work Phone: [facility] 01-04-2022 15:40-0400 Systolic blood pressure 106 mm[Hg] Cristina Thapa MD Work Phone: [facility] Encounters Encounter Date Encounter Type Care Provider Facility Start: 08-22-2024 ambulatory Cristina Thapa [facility] y:[facility] Start: 05-15-2024 End: 05-15-2024 Office outpatient visit 25 minutes Henna White PA-C Work Phone: [facility] [place] Comment on above: Hemangioma of skin; Seborrheic keratosis; Solar lentigo; Encounter for skin care; Multiple benign melanocytic nevi of both upper extremities, both lower extremities, and trunk Start: 05-15-2024 End: 05-15-2024 ambulatory [facility] Start: 04-12-2024 End: 04-12-2024 ambulatory [facility] Facility[facility] Start: 04-12-2024 End: 04-12-2024 ambulatory [facility] Facility:[facility] Start: 03-09-2024 End: 03-09-2024 ambulatory [facility] Facility[place] Start: 02-08-2024 End: 02-08-2024 ambulatory [facility] Facility:[facility] Start: 02-08-2024 End: 02-08-2024 Patient encounter procedure Cristina Thapa MD Work Phone: OB/Gynecology Comment on above: Encounter for gyneco logical examination (general) (routine) without abnormal findings (Primary Dx); Encounter for screening mammogram for breast cancer Start: 02-08-2024 End: 02-08-2024 Patient encounter status Cristina Thapa MD Work Phone: [facility] Start: 01-30-2024 End: 01-30-2024 Telephone encounter Henna White PA-C Work Phone: [facility] [employer] [facility] - Nannette Florian Start: 08-30-2023 End: 08-30-2023 ambulatory [facility] Facility:[facility] Start: 05-26-2023 End: 05-26-2023 Office outpatient visit 25 minutes Henna White PA-C Work Phone: [facility] Comment on above: Hemangioma of skin; Seborrheic keratosis; Solar lentigo; Encounter for skin care; Multiple benign melanocytic nevi of both upper extremities, both lower extremities, and trunk; History of atypical nevus; Neoplasm of uncertain behavior of skin Start: 05-26-2023 End: 05-26-2023 ambulatory HENNA WHITE [facility] Start: 01-10-2023 End: 01-10-2023 Patient encounter procedure Cristina Thapa MD Work Phone: OB/Gynecology Comment on above: Encounter for gyneco logical examination (general) (routine) without abnormal findings (Primary Dx); Encounter for screening for malignant neoplasm of cervix; Special screening examination for human papillomavirus (HPV); ASCUS of cervix with negative high risk HPV Start: 01-10-2023 End: 01-10-2023 Patient encounter status Cristina Thapa MD Work Phone: [facility] Start: 08-27-2022 End: 08-27-2022 Patient encounter procedure HUMBERTO ROBERTSON DO [facility] Start: 08-27-2022 End: 08-27-2022 Well adult monitoring check done HUMBERTO ROBERTSON DO [facility] Start: 06-18-2022 Orders Only Cristina mosqueda MD Work Phone: Appointment Center Comment on above: Encounter for screen ing mammogram for malignant neoplasm of breast (Primary Dx) Start: 05-25-2022 End: 05-25-2022 Office outpatient visit 25 minutes Henna White PA-C Work Phone: [facility] Comment on above: Seborrheic keratosis ; Multiple benign nevi; Solar lentigo; Sorensen angioma Start: 01-26-2022 End: 01-26-2022 Patient encounter procedure Cristina Thapa MD Work Phone: OB/Gynecology Comment on above: Vulval lesion (Prima ry Dx) Start: 01-04-2022 End: 01-04-2022 Patient encounter procedure Cristina Thapa MD Work Phone: OB/Gynecology Comment on above: Encounter for gyneco logical examination without abnormal finding (Primary Dx); Vulval lesion Start: 01-04-2022 End: 01-04-2022 Patient encounter status Cristina Thapa MD Work Phone: OB/Gynecology Start: 08-17-2021 End: 08-17-2021 Patient encounter procedure [facility]-Outpatient Breast Imaging Procedures Date Procedure Procedure Detail Performing Clinician Start: 05-26-2023 SKIN / NAIL BIOPSY Steve White PA-C Work Phone: Start: 05-26-2023 Level iv surg pathol ogy gross&microscopic exam Henna White PA-C Work Phone: Start: 01-11-2023 Microscopic observat ion [Identifier] in Cervix by Cyto stain Henna White PA-C Work Phone: Start: 01-26-2022 Urine test visual color cmprsn meths Cristina Thapa MD Work Phone: Start: 08-17-2021 End: 08-17-2021 Screening mammography Start: 01-22-2011 Lipid 1996 panel - S ivett or Plasma Cristina Thapa MD Work Phone: Start: Laser assisted in si tu keratomileusis HUMBERTO ROBERTSON DO Comment on above: bilateral Plan of Treatment Date Care Activity Detail Author Start: 06-04-2047 RSV Immunization for Adults (1 - 1-dose 75+ series) RSV Immunization for Adults (1 - 1-dose 75+ series) [facility] Start: 2032 RSV Immunization age d 60 or older (1 - 1-dose 60+ series) RSV Immunization aged 60 or older (1 - 1-dose 60+ series) [facility] Start: 01-12-2028 Screening for malign ant neoplasm of cervix Cervical Cancer Screening [facility] Start: 01-11-2026 Screening for malign ant neoplasm of cervix [facility] Start: 09-17-2025 HPV TESTING HPV TESTING [facility] Start: 09-17-2025 PAP TESTING PAP TESTING [facility] Start: 09-16-2025 Screening for malign ant neoplasm of colon [facility] Start: 05-21-2025 End: 05-21-2025 Patient encounter procedure 05/21/2025 1:00 PM EDT Office Visit [facility] [address] [place] [phone] Henna White PA-C [address] [place], [place] [id number] [facility] Start: 02-13-2025 End: 02-13-2025 Patient encounter procedure 02/13/2025 4:00 PM EST Office Visit OB/Gynecology [address] [place], [place] [address] Cristina Thapa MD [address] [place], [place] [id number] Annual OB/Gynecology Comment on above: Annual Start: 12-04-2024 End: 12-04-2024 Patient encounter procedure 12/04/2024 2:40 PM EDT [facility] [address] [place] [phone] Henna White PA-C [address] [place] [address] [facility] Start: 08-21-2024 Screening for malign ant neoplasm of breast Mammogram Screening [facility] Start: 05-25-2024 End: 05-25-2024 Patient encounter procedure 05/25/2024 1:00 PM EDT Office Visit [facility] [address] [place] [phone] Henna White PA-C [address] [place], [place] [phone] [facility] Start: 05-15-2024 End: 05-15-2024 Patient encounter procedure 05/15/2024 3:20 PM EST [facility] [address] [place] [phone] Henna White PA-C [address] [place] [address] [facility] Start: 11-13-2023 Covid-19 Vaccine ( season) Covid-19 Vaccine () [facility] Start: 11-13-2023 COVID-19 Vaccine ( season) COVID-19 Vaccine () [facility] Start: 11-13-2023 Influenza vaccination Influenza Vacc ine (#1) [facility] Start: 08-20-2023 Mammography Mammogram Screening [facility] Start: 05-26-2023 End: 05-26-2023 Patient encounter procedure 05/26/2023 Office Visit Dermatology Henna White PA-C [address] [place] [address] [facility] Start: 11-12-2022 Covid-19 Vaccine ( season) Covid-19 Vaccine ( season) [facility] Start: 11-12-2022 COVID-19 Vaccine ( season) COVID-19 Vaccine ( season) [facility] Start: 11-12-2022 Influenza vaccination INFLUENZA (Sea son Ended) [facility] Start: 08-17-2022 Mammography MAMMOGRAM [facility] Start: 08-17-2022 Screening for malign ant neoplasm of breast Mammogram [facility] Start: 2022 Pneumococcal Vaccine : 50+ Years (1 of 1 - PCV) Pneumococcal Vaccine: 50+ Years (1 of 1 - PCV) [facility] Start: 2022 SHINGRIX VACCINE (1 of 2) SHINGRIX VACCINE (1 of 2) [facility] Start: 2022 Zoster Vaccines (1 o f 2) Zoster Vaccines (1 of 2) [facility] Start: 03-14-2022 DEPRESSION ASSESSMENT DEPRESSION ASS ESSMENT [facility] Start: 01-23-2022 DTaP/Tdap/Td Vaccine s (2 - Td or Tdap) DTaP/Tdap/Td Vaccines (2 - Td or Tdap) [facility] Start: 01-23-2022 Urine microalbumin profile [facility] Start: 01-15-2022 COVID-19 VACCINE (3 - Booster for Pfizer series) COVID-19 VACCINE (3 - Booster for Pfizer series) [facility] Start: 11-12-2021 Influenza vaccination [facility] Start: 03-14-2021 DEPRESSION ASSESSMENT DEPRESSION ASS ESSMENT [facility] Start: 2017 COLOGUARD (FIT-DNA) COLOGUARD (FIT-D NA) [facility] Start: 2017 Colonoscopy COLONOSCOPY [facility] Start: 2017 COLORECTAL CANCER SCREENING COLORECTAL CANCER SCREENING [facility] Start: [address] COLONOGRAPHY [facility] Start: 2017 DIABETES SCREEN DIABETES SCREEN [facility] Start: 2017 Diabetes Screening Diabetes Screenin g [facility] Start: 2017 FECAL OCCULT BLOOD FECAL OCCULT BLOO D [facility] Start: 2017 Lipid 1996 panel - Serum or Plasma Lipid Screening [facility] Start: 2017 Lipid panel Lipid Screening [facility] Start: 2017 LIPID SCREEN LIPID SCREEN [facility] Start: 2017 Screening for malign ant neoplasm of colon [facility] Start: 2017 SIGMOIDOSCOPY SIGMOIDOSCOPY [facility] Start: 2012 Screening for malign ant neoplasm of breast Mammogram [facility] Start: 2002 Screening for malign ant neoplasm of cervix [facility] Start: 1993 Screening for malign ant neoplasm of cervix Pap Smear [facility] Start: 06-04-1991 Hepatitis B Vaccine (1 of 3 - 19+ 3-dose series) Hepatitis B Vaccine (1 of 3 - 19+ 3-dose series) [facility] Start: 06-04-1991 Hepatitis B Vaccines (1 of 3 - 19+ 3-dose series) Hepatitis B Vaccines (1 of 3 - 19+ 3-dose series) [facility] Start: 1990 Anxiety Screening Anxiety Screening [facility] Start: 1990 Depression Screening Depression Scre ening [facility] Start: 1990 Diabetes mellitus screening Diabetes Screening [facility] Start: 1990 HEPATITIS C SCREENING HEPATITIS C [facility] Start: 1990 Hepatitis C screening Hepatitis C [facility] Start: 1990 HIV SCREENING HIV SCREENING [facility] Start: 1990 HIV screening HIV Screening [facility] Start: 1984 Depression Screening Depression Scre ing [facility] Start: 1973 MMR Vaccines (1 of 1 - Standard series) MMR Vaccines (1 of 1 - Standard series) [facility] Start: 1972 Examination of skin Derm Melanoma Sk in Check [facility] Start: 1972 HEPATITIS B (1 of 3 - 3-dose series) HEPATITIS B (1 of 3 - 3-dose series) [facility] Start: 1972 Hepatitis B Vaccine (1 of 3 - 3-dose series) Hepatitis B Vaccine (1 of 3 - 3-dose series) [facility] Start: 1972 Hepatitis B Vaccines (1 of 3 - 3-dose series) Hepatitis B Vaccines (1 of 3 - 3-dose series) [facility] Start: 1972 HIV screening HIV Screening [facility] Start: 1972 Lipid panel Lipid Panel [facility] [place] [facility] Start: 1972 Screening for malign ant neoplasm of colon [facility] Biopsy vulva/perineu m 1 lesion spx BIOPSY OF VULVA Procedures Routine Vulval lesion Ordered: 01/04/2022 [facility] Work Phone: Comment on above: Ordered: 01/04/2022 End: 03-09-2025 DBT Breast - bilateral screening NEVA SCREENING W AVI Radiology Routine Encounter for gynecological examination (general) (routine) without abnormal findings Encounter for screening mammogram for breast cancer 1 Occurrences starting 02/08/2024 until 03/09/2025 [facility] Work Phone: Comment on above: 1 Occurrences starti ng 02/08/2024 until 03/09/2025 End: 07-18-2023 NEVA SCREENING W AVI NEVA SCREENING W AVI Radiology Routine Encounter for screening mammogram for malignant neoplasm of breast 1 Occurrences starting 06/21/2022 until 07/18/2023 [facility] Work Phone: Comment on above: 1 Occurrences starti ng 06/21/2022 until 07/18/2023 PAP TEST PAP TEST Lab Neal leroy Encounter for gynecological examination (general) (routine) without abnormal findings Encounter for screening for malignant neoplasm of cervix Special screening examination for human papillomavirus (HPV) ASCUS of cervix with negative high risk HPV Ordered: 01/10/2023 [facility] Work Phone: Comment on above: Ordered: 01/10/2023 SURGICAL PATHOLOGY SURGICAL PATH OLOGY Lab Routine Vulval lesion 01/26/2022 4:03 PM EST [facility] Work Phone: [facility] Immunizations Immunization Date Immunization Notes Care Provider Brooks bowling 02-06-2021 Pfizer SARS-CoV-2 Vaccination Henna White PA-C Work Phone: [facility] 01-10-2019 influenza virus vaccine, unspecified formulation Henna White PA-C Work Phone: [facility] [place] Comment on above: Result Comment: work 01-24-2012 tetanus toxoid, redu tonja diphtheria toxoid, and acellular pertussis vaccine, adsorbed Cristina Thapa MD Work Phone: [facility] 12-23-2011 influenza virus vaccine, unspecified formulation Cristina Thapa MD Work Phone: [facility] Payers Date Payer Category Payer Self-pay [id number] 2023 Commercial Managed C are - HMO [employer] [id number] 2023 Commercial Managed C are - PPO [employer] PPO [id number] 2023 Private Health Insurance [id number] 2011 Private Health Insurance [id number] Private Health Insurance SELF PAY INSURAN CE [id number] Unknown [id number] Unknown [id number] Unknown [id number] Unknown [id number] Unknown [id number] Social History Date Type Detail Facility Start: [facility]17-2018 [facility] Work Phone: Start: 1970 Sex Assigned At Female [facility] Start: 02-02-2019 End: 01-04-2022 Tobacco smoking status NHIS Never smoked tobacco [facility] Start: 01-04-2022 Tobacco use and exposure Smokeless tobacco non-user [facility] Start: 01-04-2022 End: 02-08-2024 Alcohol intake Current non-drinker of alcohol (finding) [facility] Start: 1970 Sex Assigned At Not on file [facility] Sex Assigned At Sex [facility] Start: 06-09-2021 End: 01-10-2023 History of Social function [facility] Start: 06-09-2021 End: 01-10-2023 Tobacco use panel [facility] National Score (1-10 0), lower number is lower risk 43 [facility] Start: 06-09-2021 Alcohol intake 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) [facility] Start: 05-18-2022 Gender identity Identifies as female gender (finding) [facility] Start: 05-18-2022 Sexual orientation Heterosexual (fin ding) [facility] Start: 10-12-2021 Sex Female (finding) [facility] Start: 05-15-2022 End: 05-25-2022 Exposure to SARS-CoV-2 (event) Not sure [facility] Clinical Notes 07-26-2016 to 05-15-2024 Henna White PA-C - 05/15/2024 3:20 PM ESTPatient InstructionsCristina Thapa MD - 02/08/2024 4:00 PM ESTTelephone Encounter - Cristina Leahy - 01/30/2024 1:43 PM ESTPatient Instructions Note Date & Type Note Facility 05-15-2024 History of Present illness Narrative DATE OF SERVICE: 05/15/2024 PATIENT NAME: Mandi Bonilla : 1970 AGE: 53 y.o. CLINIC NUMBER: [id number] Visit type: Established patient Chief Complaint Patient presents with Skin Check William 05/26/2023 (kb) Subjective HISTORY OF PRESENT ILLNESS: This is a 53 y.o. female who presents for evaluation of upper body check; last seen 05/26/2023. Patient denies any new changing, bleeding, or itching lesions. Patient has?h/o of ATN. Patient has no?h/o of AKs. ? Patient has no?personal h/o skin cancer. Patient has no?family h/o melanoma. Are you or ? No History of pacemaker/ defibrillator? No History of HIV/ Hep C? No Allergies to Lidocaine, Epinephrine, Latex or Adhesive? No Social History: Occupation: [employer]. Born/raised in [place]. Outdoor sports: no. 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 Patient does use additional sun protection Review of Systems There were no vitals filed for this visit. PHYSICAL EXAM GENERAL APPEARANCE:?Alert & oriented x3, pleasant. Well developed, well nourished. PSYCH: appropriate mood and affect DERMATOLOGY: (all measurements are in cm, unless otherwise noted) 1. Hemangioma of skin (2) Generalized, Left Flank Bright red vascular papule(s) Reassured and educated, benign finding. 2. Seborrheic keratosis (2) Generalized, Right Lower Back Escalera-brown waxy papule(s) and plaque(s) Reassured that this is a benign lesion and does not require any treatment. Educated that if the lesion changes color, becomes larger, bleeds, becomes bothersome or painful then it should be reevaluated. Patient expresses understanding and is agreeable to plan. 3. Solar lentigo (2) Generalized, Left Forearm - Posterior Light brown well-circumscribed macule(s) Educated and reassured, benign finding secondary to sun exposure. Patient educated on the proper use of sunscreen, SPF, and how often to reapply. Recommend use of OTC mineral sun block, like Neutrogena or La-Rob Posay. Patient advised to look for zinc or titanium as the active ingredient(s). Try to limit sun exposure to rehabilitator or late evening hours. Patient advised to perform self-skin checks and call for follow up appointment if any new or concerning lesions detected. 4. Encounter for skin care (2) Generalized, Right Forearm - Anterior SKIN TYPE: I Educated on signs of skin cancer, skin cancer causes, prevention, and risk of developing skin cancers in the future. Sun protection measures reviewed, recommended monthly self skin exams and annual full skin exam. 5. Multiple benign melanocytic nevi of both upper extremities, both lower extremities, and trunk (2) Chest - Medial (Center), Generalized Scattered uniform escalera/brown nevoid macules and papules; showing normal patterns with dermoscopy Reassured that this is a benign lesion and does not require any treatment. Educated that if the lesion changes color, becomes larger, bleeds, becomes bothersome or painful then it should be reevaluated. Patient expresses understanding and is agreeable to plan. Follow up in about 1 year (around 05/15/2025) for Recheck. Henna White PA-C 05/15/24 3:10 PM REFERRING MD: documented in this encounter [facility] 05-15-2024 Instructions Pauline Hernandez LPN - 05/15/2024 3:20 PM EST Protecting Your Skin from the Sun The sun s rays contain ultraviolet (UV) radiation that can damage our skin. There is no safe ultraviolet ray. Even on cloudy days, UV radiation reaches the earth and can cause skin damage. Ultraviolet A (UVA) is primarily responsible for premature aging, wrinkles, and tanning, while ultraviolet B (UVB) causes sunburns. Both types can severely damage the skin and cause skin cancer. Sun exposure is the most preventable risk factor for all skin cancers, including melanoma. You can still have fun in the sun and decrease your risk for skin cancer. Apply water-resistant sunscreen generously with a Sun Protection Factor (SPF) of at least 30 that provides broad-spectrum protection from both ultraviolet A (UVA) and ultraviolet B (UVB) rays to all exposed skin. Re-apply every two hours, even on cloudy days, and after sweating or swimming. Sunscreens are not perfect because some ultraviolet light may still get through sunscreens, so they should not be used as a way of prolonging sun exposure. Seek shade when appropriate, remembering that the sun s rays are the strongest between 10 AM and 4 PM. Wear sun protective clothing such as a long-sleeved shirt, pants, a wide-brimmed hat, and sunglasses, when possible. Some sunlight will get through your clothing. You can wear sunscreen underneath, or you can buy clothing that has been treated to give additional sun protection. Such clothing will have a UPF rating on the label. (e.g., www.[employer]r.[employer], www.Zaizher.im) Protect children from sun exposure by having them play in the shade, dressing them in protective clothing, and applying sunscreen. Use extra precaution when near water, snow, and sand. These surfaces reflect the damaging rays of the sun and can increase your chance of sunburn. Get vitamin D safely through a healthy diet that may include vitamin supplements. Don t seek the sun for vitamin D. Avoid tanning beds. Ultraviolet light from the sun and tanning beds can cause wrinkling and skin cancer. If you want to look like you ve been in the sun, consider using a sunless self-tanning product, but continue to use sunscreen with it. Perform a regular self skin exam. If you notice anything changing, growing, or bleeding on your skin, see a university professor. Skin cancer is very treatable when caught early. Examples of good broad-spectrum sunscreens: Blue Lizard Coppertone Spectra 3 [place] Block Neutrogena Ultra Sheer Dry Touch [facility] Total Block/Raheem Bennett MD What the active ingredients do: UVB blockers: padimate O homosalate, octyl methoxycinnamate, benzophenone octyl salicylate, phenylbenzimadazole sulfonic acid, octocrylene UVA blockers: oxybenzone, avobenzone (Parsol 1789) Physical blockers: titanium dioxide, zinc oxide (These are chemical-free sunscreens that reflect both UVA and UVB. These may be safest if you are allergic to some sunscreens. These may also be better for sensitive skin.) documented in this encounter [facility] [employer] 02-08-2024 Note HNO ID: [id number] Author: CRISTINA THAPA MD Service: ? Author Type: Physician Type: Progress Notes Filed: 02/08/2024 16:21 Note Text: Patient declined suture winder handRahel Raymond is a 53 year old who presents for an annual gynecologic exam without complaints. Not a lot of hot flashes. Postmenopausal: Menopausal- no bleeding HRT use: No. 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 Pap smear (cervix) Hypertension PAST SURGICAL HISTORY Procedure Laterality Date REFRACTIVE SURGERY OD (RIGHT EYE) Bilateral 07/31/2020 FAMILY HISTORY Problem Relation Age of Onset Hypertension Mother other (parkinsons) Father Dementia Father Diabetes Maternal Grandmother Emphysema Paternal Grandfather SOCIAL HISTORY Social History Tobacco Use Smoking status: Never Smokeless tobacco: Never Vaping Use Vaping status: Never Used Substance Use Topics Alcohol use: No Drug use: No REVIEW OF SYSTEMS Abdomen: No abdominal pain, nausea, vomiting, diarrhea, or constipation. No bloating, early satiety, indigestion, or increased flatulence. Bladder: No dysuria, gross hematuria, urinary frequency, urinary urgency, or incontinence Breast: No breast lumps, nipple d/c, overlying skin changes, redness or skin retraction Allergies and current medication updated:Yes SENSITIVE EXAM: The sensitive examination was discussed with the Patient or Patient's Authorized Soda Room Operator. As applicable, any other physician, advance practice provider, medical student, or other health professional student that will be observing or involved in the sensitive examination for educational or training purposes was discussed with the Patient or Authorized Soda Room Operator. The Patient or Authorized Soda Room Operator has agreed to proceed with the sensitive examination. (Sensitive examination includes inspection and/or palpation of the breasts, pelvis, prostate and anorectal regions). EXAM: LMP 12/04/2021 GENERAL: pleasant, female in no apparent distress HEENT: Normocephalic, atraumatic, mucus membranes moist, and no lesions NECK: Supple, full range of motion, no adenopathy, and thyroid normal DERMATOLOGY: Normal, without lesions, non-icteric, and non-hirsute BREAST: soft, non-tender, symmetric, no dominant mass, normal nipple-areolar complex, no lymphadenopathy, and no nipple discharge CHEST: Normal inspiratory effort ABDOMEN: soft, non-tender, and no masses PELVIC: external genitalia normal, normal Bartholin's glands, urethra, Aldie's glands, no vulvar lesions, no cervical lesions, good vaginal support, physiologic discharge present, normal appearing perineal body and perianal region BIMANUAL: uterus normal size, shape and consistency, no adnexal masses, and non-tender RECTOVAGINAL: deferred. NEURO: alert and oriented x3,exam grossly non-focal EXTREMITIES: normal ASSESSMENT/PLAN: 1) Health maintenance: Pap/HPV up to date. Mammogram ordered Colon cancer screening: up to date with screening 2) Follow up one year or sooner as needed Cristina Thapa MD [facility] 02-08-2024 History of Present illness Narrative Patient declined suture winder hand. Mandi is a 53 year old who presents for an annual gynecologic exam without complaints. Not a lot of hot flashes. Postmenopausal: Menopausal- no bleeding HRT use: No. 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 Pap smear (cervix) Hypertension PAST SURGICAL HISTORY Procedure Laterality Date REFRACTIVE SURGERY OD (RIGHT EYE) Bilateral 07/31/2020 FAMILY HISTORY Problem Relation Age of Onset Hypertension Mother other (parkinsons) Father Dementia Father Diabetes Maternal Grandmother Emphysema Paternal Grandfather SOCIAL HISTORY Social History Tobacco Use Smoking status: Never Smokeless tobacco: Never Vaping Use Vaping status: Never Used Substance Use Topics Alcohol use: No Drug use: No REVIEW OF SYSTEMS Abdomen: No abdominal pain, nausea, vomiting, diarrhea, or constipation. No bloating, early satiety, indigestion, or increased flatulence. Bladder: No dysuria, gross hematuria, urinary frequency, urinary urgency, or incontinence Breast: No breast lumps, nipple d/c, overlying skin changes, redness or skin retraction Allergies and current medication updated:Yes SENSITIVE EXAM: The sensitive examination was discussed with the Patient or Patient's Authorized Soda Room Operator. As applicable, any other physician, advance practice provider, medical student, or other health professional student that will be observing or involved in the sensitive examination for educational or training purposes was discussed with the Patient or Authorized Soda Room Operator. The Patient or Authorized Soda Room Operator has agreed to proceed with the sensitive examination. (Sensitive examination includes inspection and/or palpation of the breasts, pelvis, prostate and anorectal regions). EXAM: LMP 12/04/2021 GENERAL: pleasant, female in no apparent distress HEENT: Normocephalic, atraumatic, mucus membranes moist, and no lesions NECK: Supple, full range of motion, no adenopathy, and thyroid normal DERMATOLOGY: Normal, without lesions, non-icteric, and non-hirsute BREAST: soft, non-tender, symmetric, no dominant mass, normal nipple-areolar complex, no lymphadenopathy, and no nipple discharge CHEST: Normal inspiratory effort ABDOMEN: soft, non-tender, and no masses PELVIC: external genitalia normal, normal Bartholin's glands, urethra, Aldie's glands, no vulvar lesions, no cervical lesions, good vaginal support, physiologic discharge present, normal appearing perineal body and perianal region BIMANUAL: uterus normal size, shape and consistency, no adnexal masses, and non-tender RECTOVAGINAL: deferred. NEURO: alert and oriented x3,exam grossly non-focal EXTREMITIES: normal ASSESSMENT/PLAN: 1) Health maintenance: Pap/HPV up to date. Mammogram ordered Colon cancer screening: up to date with screening 2) Follow up one year or sooner as needed Cristina Thapa MD documented in this encounter [facility] 01-30-2024 Telephone encounter Note Returned call unable to leave voicemail (vm never beeped to leave message, just heard static noises) [facility] 01-30-2024 Miscellaneous Notes Returned call unable to leave voicemail (vm never beeped to leave message, just heard static noises) documented in this encounter [facility] 05-31-2023 Note Result Communication Resulted Orders Tissue exam Result Value Ref Range Case Report Surgical Pathology Case: [id number] Authorizing Provider: Henna White PA-C Collected: 05/26/2023 1324 Ordering Location: [facility] Received: 05/27/2023 1119 Dermatology Pathologist: Kierra Mandujano MD Specimen: DERM, Skin, Right Thigh - Anterior Final Diagnosis Skin, right thigh-anterior: Lentigo (see comment). Comment There is no surrounding inflammation to suggest a halo nevus. A primary melanocytic lesion is not seen. Clinical pathologic correlation is recommended. Special Stains Immunohistochemical stains are performed show the following: A MART1 and SOX10 highlight rare scattered melanocytes, supporting the final diagnosis. Clinical Information Neoplasm of uncertain behavior of skin - D48.5 [ICD-10-CM]; ATN vs Halo Nevi, 2 mm escalera macule with surrounding white halo Gross Description Received in formalin labeled right thigh - anterior is a skin shave biopsy specimen that measures 0.7 x 0.6 cm. The skin surface is lightly pigmented and remarkable for a hyperpigmented area that measures 0.3 x 0.2 cm. The specimen is trisected and entirely submitted in one cassette. Disclaimer Disclaimer: The following statement applies to all immunohistochemistry, in situ hybridization, molecular studies, and immunofluorescence testing, if performed on this case. The use of one or more reagents in the above tests is regulated as an analyte specific reagent (ASR). These tests were developed and their performance characteristics determined by the clinical laboratories of [facility]. They have not been cleared by the US Food and Drug Administration (FDA). The FDA has determined that such clearance or approval is not necessary. All immunostains were performed on paraffin embedded tissue. Appropriate positive and negative controls (where applicable) were run in parallel with the patient's specimen; these controls showed expected staining pattern, with acceptable intensity of staining. Immunohistochemical assays have not been validated on decalcified tissues. Results should be interpreted with caution given the raised possibility of false negativity on decalcified specimens. Pathologist Interpretation Location [facility], [address] [place], [place] [id number], CLIA: [id number]; Joint Commission: [id number]; CAP: [id number] 2:36 PM Results were not successfully communicated with the patient and they acknowledged their understanding. [facility] 05-26-2023 History of Present illness Narrative Images from the original note were not included. DATE OF SERVICE: 05/26/2023 PATIENT NAME: Mandi Bonilla : 1970 AGE: 52 y.o. CLINIC NUMBER: [id number] Visit type: Established patient Chief Complaint Patient presents with Annual Exam WILLIAM 05/25/2022 (KB) Subjective HISTORY OF PRESENT ILLNESS: Mandi Bonilla is a 52 y.o. who presents to the office for a check up. Patient's last FSE was done on 05/25/2022. Patient has a history of; Mild Atypical nevi Mild ATN L upper back 2007, R lateral thigh and L lower back 2010 Patient has a history of severe sunburn in the past. Patient has?h/o of ATN. Patient has no?h/o of AKs. ? Patient has no?personal h/o skin cancer. Patient has no?family h/o melanoma. Are you or ? No History of pacemaker/ defibrillator? No History of HIV/ Hep C? No Allergies to Lidocaine, Epinephrine, Latex or Adhesive? No Social History: Occupation: [employer]. Born/raised in [place]. Outdoor sports: no. 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 Patient does use additional sun protection Review of Systems Dermatology: as per HPI, otherwise negative There were no vitals filed for this visit. PHYSICAL EXAM: GENERAL APPEARANCE:?alert and oriented x3, well developed and well nourished. PSYCH: appropriate mood and affect DERMATOLOGY: Please see diagram of patient examination (all noted lesions were examined dermoscopically; all measured lesions are pigmented macules with benign nevus patterns, unless otherwise noted) 1. Hemangioma of skin (2) Generalized, Left Flank Bright red vascular papule(s) Reassured and educated, benign finding. 2. Seborrheic keratosis (2) Generalized, Right Lower Back Escalera-brown waxy papule(s) and plaque(s) Reassured that this is a benign lesion and does not require any treatment. Educated that if the lesion changes color, becomes larger, bleeds, becomes bothersome or painful then it should be reevaluated. Patient expresses understanding and is agreeable to plan. 3. Solar lentigo (2) Generalized, Left Forearm - Posterior Light brown well-circumscribed macule(s) Educated and reassured, benign finding secondary to sun exposure. Patient educated on the proper use of sunscreen, SPF, and how often to reapply. Recommend use of OTC mineral sun block, like Neutrogena or La-Rob Posay. Patient advised to look for zinc or titanium as the active ingredient(s). Try to limit sun exposure to rehabilitator or late evening hours. Patient advised to perform self-skin checks and call for follow up appointment if any new or concerning lesions detected. 4. Encounter for skin care (2) Generalized, Right Forearm - Anterior SKIN TYPE: I Educated on signs of skin cancer, skin cancer causes, prevention, and risk of developing skin cancers in the future. Sun protection measures reviewed, recommended monthly self skin exams and annual full skin exam. 5. Multiple benign melanocytic nevi of both upper extremities, both lower extremities, and trunk (2) Chest - Medial (Center), Generalized Scattered uniform escalera/brown nevoid macules and papules; showing normal patterns with dermoscopy Reassured that this is a benign lesion and does not require any treatment. Educated that if the lesion changes color, becomes larger, bleeds, becomes bothersome or painful then it should be reevaluated. Patient expresses understanding and is agreeable to plan. 6. History of atypical nevus (3) Right Thigh - Anterior; Left Upper Back; Left Lower Back Continue to montior 7. Neoplasm of uncertain behavior of skin Right Thigh - Anterior 2 mm escalera macule with surrounding white halo Lesion biopsy Type of biopsy: tangential Informed consent: discussed and consent obtained Timeout: patient name, date of , surgical site, and procedure verified Procedure prep: Patient was prepped and draped in usual sterile fashion Prep type: Isopropyl alcohol Anesthesia: the lesion was anesthetized in a standard fashion Anesthetic: 1% lidocaine w/ epinephrine 1-100,000 buffered w/ 8.4% NaHCO3 Instrument used: DermaBlade Hemostasis achieved with: electrodesiccation Outcome: patient tolerated procedure well Post-procedure details: sterile dressing applied and wound care instructions given Dressing type: pressure dressing and bandage Specimen A - Tissue exam Differential Diagnosis: ATN vs Halo Nevi Check Margins: No Biopsy recommended. Patient expresses understanding and is in agreement with the plan. Biopsy (x1) obtained today. Patient educated that we will call with the biopsy results within 2 weeks. Care instructions reviewed and written instructions provided to patient. On this date, I have spent 30 minutes reviewing previous notes, test results and face to face with the patient discussing the diagnosis and importance of compliance with the treatment plan as well as documenting on the day of the visit. I spent a total of 30 minutes on the day of the visit. [x]Preparing to see the patient [x]Obtaining/reviewing separately obtained history [x]Performing exam/evaluation [x]Counseling patient/family/caregiver [x]Ordering medication/tests/procedures []Referring and communicating with other health professionals [x]Documenting clinical information in the EMR []Independently interpreting results and communicating results to patient/family/caregiver []Care coordination Follow up in about 1 year (around 05/25/2024) for Full Skin Exam. Henna White PA-C 05/31/23 12:51 PM REFERRING MD: No referring provider defined for this encounter. documented in this encounter [facility] 05-26-2023 Instructions Pauline Hernandez LPN - 05/26/2023 1:00 PM EDT Protecting Your Skin from the Sun The sun s rays contain ultraviolet (UV) radiation that can damage our skin. There is no safe ultraviolet ray. Even on cloudy days, UV radiation reaches the earth and can cause skin damage. Ultraviolet A (UVA) is primarily responsible for premature aging, wrinkles, and tanning, while ultraviolet B (UVB) causes sunburns. Both types can severely damage the skin and cause skin cancer. Sun exposure is the most preventable risk factor for all skin cancers, including melanoma. You can still have fun in the sun and decrease your risk for skin cancer. Apply water-resistant sunscreen generously with a Sun Protection Factor (SPF) of at least 30 that provides broad-spectrum protection from both ultraviolet A (UVA) and ultraviolet B (UVB) rays to all exposed skin. Re-apply every two hours, even on cloudy days, and after sweating or swimming. Sunscreens are not perfect because some ultraviolet light may still get through sunscreens, so they should not be used as a way of prolonging sun exposure. Seek shade when appropriate, remembering that the sun s rays are the strongest between 10 AM and 4 PM. Wear sun protective clothing such as a long-sleeved shirt, pants, a wide-brimmed hat, and sunglasses, when possible. Some sunlight will get through your clothing. You can wear sunscreen underneath, or you can buy clothing that has been treated to give additional sun protection. Such clothing will have a UPF rating on the label. (e.g., www.[employer], www.[employer]) Protect children from sun exposure by having them play in the shade, dressing them in protective clothing, and applying sunscreen. Use extra precaution when near water, snow, and sand. These surfaces reflect the damaging rays of the sun and can increase your chance of sunburn. Get vitamin D safely through a healthy diet that may include vitamin supplements. Don t seek the sun for vitamin D. Avoid tanning beds. Ultraviolet light from the sun and tanning beds can cause wrinkling and skin cancer. If you want to look like you ve been in the sun, consider using a sunless self-tanning product, but continue to use sunscreen with it. Perform a regular self skin exam. If you notice anything changing, growing, or bleeding on your skin, see a university professor. Skin cancer is very treatable when caught early. Examples of good broad-spectrum sunscreens: Blue Lizard Coppertone Spectra 3 [place] Block Neutrogena Ultra Sheer Dry Touch [facility] Total Block/Raheem Bennett MD What the active ingredients do: UVB blockers: padimate O homosalate, octyl methoxycinnamate, benzophenone octyl salicylate, phenylbenzimadazole sulfonic acid, octocrylene UVA blockers: oxybenzone, avobenzone (Parsol 1789) Physical blockers: titanium dioxide, zinc oxide (These are chemical-free sunscreens that reflect both UVA and UVB. These may be safest if you are allergic to some sunscreens. These may also be better for sensitive skin.) The following attachments cannot be sent through Care Everywhere.Skin Biopsy (Cymro)documented in this encounter [facility] 01-10-2023 Miscellaneous Notes Addended by: CRISTINA THAPA on: 01/10/2023 04:43 PM Modules accepted: Orders Addended by: JEREMIAH VELEZ MA on: 01/10/2023 04:32 PM Modules accepted: Orders documented in this encounter [facility] 01-10-2023 History of Present illness Narrative Mandi is a 52 year old who presents for an annual gynecologic exam without complaints. Menses: n/a. Contraception: menopausal HPV vaccine: No Last Pap: 09/23/2020 normal HPV: 09/22/2020 negative History of abnormal pap: No Last mammogram: 09/03- normal Sexually active: Yes OB History T0 L0 SAB0 IAB0 Ectopic0 Multiple0 Live Births0 Cemetery Warden History LMP: 12/04/2021 (Exact Date), Postmenopausal Age at Menarche: Age at First : Age at Menopause: Cemetery Warden History Comments: Sexual Activity: Yes; Male Contraception: No contraception data on record PAST MEDICAL HISTORY Diagnosis Date Abnormal glandular Papanicolaou smear of cervix Abn. Pap smear (cervix) Hypertension PAST SURGICAL HISTORY Procedure Laterality Date REFRACTIVE SURGERY OD (RIGHT EYE) Bilateral 07/31/2020 FAMILY HISTORY Problem Relation Age of Onset Hypertension Mother other (parkinsons) Father Dementia Father Diabetes Maternal Grandmother Emphysema Paternal Grandfather SOCIAL HISTORY Social History Tobacco Use Smoking status: Never Smokeless tobacco: Never Vaping Use Vaping Use: Never used Substance Use Topics Alcohol use: No Drug use: No REVIEW OF SYSTEMS Abdomen: No abdominal pain, nausea, vomiting, diarrhea, or constipation. No bloating, early satiety, indigestion, or increased flatulence. Bladder: No dysuria, gross hematuria, urinary frequency, urinary urgency, or incontinence. Breast: No breast lumps, nipple d/c, overlying skin changes, redness or skin retraction. Allergies and current medication updated:Yes EXAM: BP 124/76 Ht 5' 5.5 (1.66m) Wt 177 lb (80.3kg) LMP 12/04/2021 BMI 29.00 kg/(m^2). GENERAL: pleasant, female in no apparent distress HEENT: Normocephalic, atraumatic, mucus membranes moist, and no lesions NECK: Supple, full range of motion, no adenopathy, and thyroid normal DERMATOLOGY: Normal, without lesions, non-icteric, and non-hirsute BREAST: soft, non-tender, symmetric, no dominant mass, normal nipple-areolar complex, no lymphadenopathy, and no nipple discharge CHEST: Normal inspiratory effort ABDOMEN: soft, non-tender, and no masses PELVIC: external genitalia normal, normal Bartholin's glands, urethra, Aldie's glands, no vulvar lesions, no cervical lesions, good vaginal support, physiologic discharge present, normal appearing perineal body and perianal region BIMANUAL: uterus normal size, shape and consistency, no adnexal masses, and non-tender RECTOVAGINAL: deferred. NEURO: alert and oriented x3,exam grossly non-focal EXTREMITIES: normal ASSESSMENT/PLAN: 1) Health maintenance: Pap done with HPV. Mammogram up to date . colon ca screening up to date 2) Contraception: menopausal. Contraceptive options reviewed and information provided. 3) STD screening: Declined STD check. 4) Follow up one year or sooner as needed Cristina Thapa MD documented in this encounter [facility] 05-25-2022 History of Present illness Narrative DATE OF SERVICE: 05/25/2022 PATIENT NAME: Mandi Bonilla : 1970 AGE: 51 y.o. CLINIC NUMBER: [id number] Visit type: Established patient Chief Complaint Patient presents with Annual Exam FULL SKIN EXAM- [facility] 06/09/21 Subjective HISTORY OF PRESENT ILLNESS: Mandi Bonilla is a 51 y.o. who presents to the office for a check up. Patient's last FSE was done on 06/09/21. Patient has a history of; Mild Atypical nevi Mild ATN L upper back 2007, R lateral thigh and L lower back 2010 Patient has a history of severe sunburn in the past. Patient has?h/o of ATN. Patient has no?h/o of AKs. ? Patient has no?personal h/o skin cancer. Patient has no?family h/o melanoma. Are you or ? No History of pacemaker/ defibrillator? No History of HIV/ Hep C? No Allergies to Lidocaine, Epinephrine, Latex or Adhesive? No Social History: Occupation: [employer]. Born/raised in [place]. Outdoor sports: no. Pets in the home: Yes Excessive sun exposure: Yes Boated regularly: no Worked on [employer] or life enrichment director: No Used tanning beds: No Patient does wear SPF. Patient does use additional sun protection measures. Review of Systems There were no vitals filed for this visit. PHYSICAL EXAM: GENERAL APPEARANCE:?alert and oriented x3, well developed and well nourished. PSYCH: appropriate mood and affect DERMATOLOGY: Skin Type I Please see diagram of patient examination (all noted lesions were examined dermoscopically; all measured lesions are pigmented macules with benign nevus patterns, unless otherwise noted) 1. Seborrheic keratosis Escalera-brown waxy papule(s) and plaque(s) Reassured that this is a benign lesion and does not require any treatment. Educated that if the lesion changes color, becomes larger, bleeds, becomes bothersome or painful then it should be reevaluated. Patient expresses understanding and is agreeable to plan. 2. Multiple benign nevi Scattered uniform brown macules No treatment is needed for the benign appearing and asymptomatic lesions described above. The ABCDE (Asymmetry, Border, Color, Diameter, Evolution/Change) criteria used to evaluate pigmented lesions were reviewed with the patient. Patient educated on the proper use of sunscreen, SPF 30 or greater, and how often to reapply. Try to limit sun exposure to rehabilitator or late evening hours. Patient advised to perform self-skin checks and call for follow up appointment if any new or concerning lesions detected. 3. Solar lentigo Light brown well-circumscribed macule(s) Educated and reassured, benign finding secondary to sun exposure. Patient educated on the proper use of sunscreen, SPF, and how often to reapply. Recommend use of OTC mineral sun block, like Neutrogena or La-Rob Posay. Patient advised to look for zinc or titanium as the active ingredient(s). Try to limit sun exposure to rehabilitator or late evening hours. Patient advised to perform self-skin checks and call for follow up appointment if any new or concerning lesions detected. 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 On this date, I have spent 30 minutes reviewing previous notes, test results and face to face with the patient discussing the diagnosis and importance of compliance with the treatment plan as well as documenting on the day of the visit. Follow up in about 1 year (around 05/26/2023) for FSE. Henna White PA-C 05/25/22 7:09 AM REFERRING MD: No referring provider defined for this encounter. documented in this encounter [facility] 01-26-2022 History of Present illness Narrative Mandi Bonilla is a 51 year old female who presents today for a vulvar biopsy. Indication: new vulvar lesion. UNIVERSAL PROTOCOL / SAFETY CHECKLIST Procedure to be Performed: vuvlar biopsy Sign In: A Moment of CARE was completed. Personnel directly involved with the procedure wore the appropriate PPE (Personal Protective Equipment). Patient/Surrogate Stated/Verified: PATIENT VERIFIED(optional for EMERGENT procedures): Patient name, Date of , Relevant allergies, and The intended procedure Time Out Communication: Intended patient and procedure match the source documents. Consent documented and matches the intended procedure. No implant(s) inserted. Sign Out: SIGN OUT (optional for EMERGENT procedures): All specimen containers correctly labeled. All instruments, equipment, possible retained foreign bodies accounted for. Post-procedure follow-up management communicated and Plan of Care Visit completed when applicable. Cristina Thapa M.D. PROCEDURE NOTE: GROSS LESIONS: Yes, pedunculated 7 mm lesion w/ irreg color, rough. Non friable. Right side lateral and just inferior to labium majorum edges BIOPSY: Area was cleansed with betadine and anesthetized with 0.15 mL 1% lidocaine with 1:100,000 epi. Scissors used to amputate the lsion HEMOSTASIS: Obtained with silver nitrate and pressure. Bactroban placed on the site ASSESSMENT: vulvar lesion PLAN: Specimens labeled and sent to Pathology. Will notify patient of results in 1-2 weeks. Post-procedure instructions reviewed and written material given to the patient. Cristina Thapa MD documented in this encounter [facility] 01-04-2022 History of Present illness Narrative Mandi is a 51 year old who presents for an annual gynecologic exam with complaints, new lesion right inner thigh . Getting bigger. Rubs on clothign, painful and gets irritated but not bleeding Menses: irregular, has had about 4 -5 this month. 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 Pap smear (cervix) Hypertension PAST SURGICAL HISTORY Procedure Laterality Date REFRACTIVE SURGERY OD (RIGHT EYE) Bilateral 07/31/2020 FAMILY HISTORY Problem Relation Age of Onset Hypertension Mother other (parkinsons) Father Dementia Father Diabetes Maternal Grandmother Emphysema Paternal Grandfather SOCIAL HISTORY Social History Tobacco Use Smoking status: Never Smokeless tobacco: Never Vaping Use Vaping Use: Never used Substance Use Topics Alcohol use: No Drug use: No REVIEW OF SYSTEMS Abdomen: No abdominal pain, nausea, vomiting, diarrhea, or constipation. No bloating, early satiety, indigestion, or increased flatulence. Bladder: No dysuria, gross hematuria, urinary frequency, urinary urgency, or incontinence. Breast: No breast lumps, nipple d/c, overlying skin changes, redness or skin retraction. Allergies and current medication updated:Yes EXAM: BP 106/62 Ht 5' 6.25 (1.68m) Wt 174 lb 9.6 oz (79.2kg) LMP 12/04/2021 BMI 27.96 kg/(m^2). GENERAL: pleasant, female in no apparent distress HEENT: Normocephalic, atraumatic, mucus membranes moist, and no lesions NECK: Supple, full range of motion, no adenopathy, and thyroid normal DERMATOLOGY: Normal, without lesions, non-icteric, and non-hirsute BREAST: soft, non-tender, symmetric, no dominant mass, normal nipple-areolar complex, no lymphadenopathy, and no nipple discharge CHEST: Normal inspiratory effort ABDOMEN: soft, non-tender, and no masses PELVIC: external genitalia normal, normal Bartholin's glands, urethra, Aldie's glands, no vulvar lesions, no cervical lesions, good vaginal support, physiologic discharge present, normal appearing perineal body and perianal region, raised lesion on 6 mm base that is approx 1 cm long, purple, nonfriable. No brown pigment. No open area or fissures, tight introitus BIMANUAL: uterus normal size, shape and consistency, no adnexal masses, and non-tender RECTOVAGINAL: deferred. NEURO: alert and oriented x3,exam grossly non-focal EXTREMITIES: normal ASSESSMENT/PLAN: 1) Health maintenance: Pap/HPV up to date. Mammogram ordered. 2) Contraception: none. Contraceptive options reviewed and information provided. 3) STD screening: Declined STD check. 4) Follow up one year or sooner as needed vulvar biopsy to remove new lesion Cristina Thapa MD documented in this encounter [facility] 07-26-2016 History of Past i llness Narrative Problem Noted Date Resolved Date Low grade squamous intraepit helial lesion (LGSIL) on Papanicolaou smear of cervix 07/26/2016 07/15/2017 Overview: July 26, 2016 Low grade pap. Neg. biopsies, colp and EMB. Cristina Thapa MD documented as of this encounter (statuses as of 01/04/2022) [facility] History of Past illness Narrative* Problem Noted Date Resolved Date Low grade squamous intraepit helial lesion (LGSIL) on Papanicolaou smear of cervix 07/26/2016 07/15/2017 Overview: July 26, 2016 Low grade pap. Neg. biopsies, colp and EMB. Cristina Thapa MD documented as of this encounter (statuses as of 01/26/2022) [facility] History of Past illness Narrative* Problem Noted Date Resolved Date Low grade squamous intraepit helial lesion (LGSIL) on Papanicolaou smear of cervix 07/26/2016 07/15/2017 Overview: July 26, 2016 Low grade pap. Neg. biopsies, colp and EMB. Cristina Thapa MD documented as of this encounter (statuses as of 06/21/2022) [facility] History of Past illness Narrative* Problem Noted Date Diagnosed Date Resolved Date Low grade squamous intraepit helial lesion (LGSIL) on Papanicolaou smear of cervix 07/26/2016 07/15/2017 Overview: July 26, 2016 Low grade pap. Neg. biopsies, colp and EMB. Cristina Thapa MD documented as of this encounter (statuses as of 01/11/2023) [facility] Future Appointments Appointment Date:10/05/2022 02:00:00 PM Scheduled Provider:HUMBERTO ROBERTSON DO Location:[facility] Appointment Type:[facility] Evaluation noteNo assessment information available [facility] [place] Work Phone: Evaluation note* Diagnosis Encounter for gynecological examination without abnormal finding- Primary Routine gynecological examination Vulval lesion Other specified noninflammatory disorder of vulva and perineum [facility] Diagnosis Vulval lesion- Primary Other specified noninflammatory disorder of vulva and perineum [facility] Diagnosis Encounter for screening mammogram for malignant neoplasm of breast- Primary Other screening mammogram [facility] Diagnosis Encounter for gynecological examination (general) (routine) without abnormal findings- Primary Encounter for screening for malignant neoplasm of cervix Screening for malignant neoplasm of the cervix Special screening examination for human papillomavirus (HPV) ASCUS of cervix with negative high risk HPV documented in this encounter [facility] note* Diagnosis Hemangioma of skin Hemangioma of skin and subcutaneous tissue Seborrheic keratosis Solar lentigo Other dyschromia Encounter for skin care Multiple benign melanocytic nevi of both upper extremities, both lower extremities, and trunk History of atypical nevus Neoplasm of uncertain behavior of skin documented in this encounter [facility] note* Diagnosis Encounter for gynecological examination (general) (routine) without abnormal findings- Primary Encounter for screening mammogram for breast cancer documented in this encounter [facility] note* Diagnosis Seborrheic keratosis Multiple benign nevi Solar lentigo Other dyschromia Sorensen angioma documented in this encounter [facility] note* Diagnosis Hemangioma of skin Hemangioma of skin and subcutaneous tissue Seborrheic keratosis Solar lentigo Other dyschromia Encounter for skin care Multiple benign melanocytic nevi of both upper extremities, both lower extremities, and trunk documented in this encounter [facility] course Narrative No data available for this section [facility] Discharge instructions No data available for this section [facility] note No data available for this section [facility] Reason for referral (narrative)* Diagnostic Procedure Only (Routine) - Pending Review Specialty Diagnoses / Procedures Referred By Alexys t Referred To Contact [facility] Diagnoses Encounter for screening mammogram for malignant neoplasm of breast Procedures NEVA SCREENING W AVI SCREENING DIGITAL BREAST TOMOSYNTHESIS BI SCREENING MAMMOGRAPHY BI 2-VIEW BREAST INC Tiera Louis APRN.CNP [address] [place] [address] [facility] [address] [place] [address] Referral ID Status Reason Start Date Expiration Date Visits Requested Visits Authorized [id number] Pending Review Auto-Generat ed Referral 06/21/2022 07/18/2023 1 1 [facility] Diagnostic Procedure Only (Routine) - New Request Specialty Diagnoses / Procedures Referred By Alexys t Referred To Contact [facility] Diagnoses Encounter for gynecological examination (general) (routine) without abnormal findings Encounter for screening mammogram for breast cancer Procedures NEVA SCREENING W AVI SCREENING DIGITAL BREAST TOMOSYNTHESIS BI SCREENING MAMMOGRAPHY BI 2-VIEW BREAST INC CAD Cristina Thapa MD [address] [place] [address] [facility] [address] [place] [address] Referral ID Status Reason Start Date Expiration Date Visits Requested Visits Authorized [id number] New Request Auto-Generat ed Referral 03/09/2025 1 1 [facility] Summary Purpose Family History No Family History Records FoundNo Family History Records FoundNo Family History Records FoundNo Family History Records Found Advance Directives No Advanced Directives Records FoundNo Advanced Directives Records FoundNo Advanced Directives Records FoundNo Advanced Directives Records Found Chief Complaint and Reason for Visit Chief Complaint SCREENING Additional Source Comments INFORMATION SOURCE (unrecogn ized section and content) DATE CREATED AUTHOR 07/14/2020 [facility] ([place]) DATE CREATED AUTHOR AUTHOR'S ORGANIZ ATION 02/11/2024 [facility] DATE CREATED AUTHOR AUTHOR'S ORGANIZ ATION 05/17/2024 [facility] DATE CREATED AUTHOR AUTHOR'S ORGANIZ ATION 08/21/2024 [facility] Goals (unrecognized section and content) Goals may be documented in a n alternate section No data available for this section Source Comments (unrecognize d section and content) In the event this informatio n is protected by the Federal Confidentiality of Alcohol and Drug Abuse Patient Records regulations: The Federal rules restrict any use of the information to criminally investigate or prosecute any alcohol or drug abuse patient.[facility] the event this information is protected by the Federal Confidentiality of Alcohol and Drug Abuse Patient Records regulations: The Federal rules restrict any use of the information to criminally investigate or prosecute any alcohol or drug abuse patient.[facility] the event this information is protected by the Federal Confidentiality of Alcohol and Drug Abuse Patient Records regulations: The Federal rules restrict any use of the information to criminally investigate or prosecute any alcohol or drug abuse patient.[facility] the event this information is protected by the Federal Confidentiality of Alcohol and Drug Abuse Patient Records regulations: The Federal rules restrict any use of the information to criminally investigate or prosecute any alcohol or drug abuse patient.[facility] the event this information is protected by the Federal Confidentiality of Alcohol and Drug Abuse Patient Records regulations: The Federal rules restrict any use of the information to criminally investigate or prosecute any alcohol or drug abuse patient.[facility] Reason for Visit (unrecogniz ed section and content) Reason Onset Date Comments Yearly Exam 01/04/2022 Reason Comments vulvar biopsy Reason Comments Yearly Exam Reason Comments Annual Exam WILLIAM 05/25/2022 (KB) Reason Comments Well Woman Reason Comments Annual Exam FULL SKIN EXAM- WILLIAM 06/09/21 Reason Comments Skin Check William 05/26/2023 (kb) Care Teams (unrecognized sec tion and content) Bindery Manager Relationship Specialty Start Date End Date Humberto Robertson [address] [place] [phone] PCP - General 05/27/03 Bindery Manager Relationship Specialty Start Date End Date Humberto Robertson [address] [place] [id number] PCP - General 05/27/03 Bindery Manager Relationship Specialty Start Date End Date Humberto Robertson DO [address] [place] [id number] PCP - General 05/27/03 Bindery Manager Relationship Specialty Start Date End Date Humberto Robertson DO [address] [place] [id number] PCP - General 05/27/03 Bindery Manager Relationship Specialty Start Date End Date Humberto Robertson DO [address] [place] [id number] PCP - General 05/22/18 Bindery Manager Relationship Specialty Start Date End Date Humberto Robertson DO [address] [place] [id number] PCP - General 05/22/18 Bindery Manager Relationship Specialty Start Date End Date Ailyn Humberto HallDO [address] [place] [id number] PCP - General 05/27/03 Bindery Manager Relationship Specialty Start Date End Date Humberto Robertson DO [address] [place] [id number] PCP - General 05/22/18 Bindery Manager Relationship Specialty Start Date End Date Humberto Robertson DO [address] [place] [id number] [facility] 05/22/18 FOR RECORDS PERTAINING TO PATIENTS WHO ARE OR HAVE BEEN ENROLLED IN A CHEMICAL DEPENDENCY/SUBSTANCEABUSE PROGRAM, SOME INFORMATION MAY BE OMITTED. This clinical summary was aggregated from multiple sources. Caution should be exercised in using it in the provision of clinical care. This summary normalizes information from multiple sources, and as a consequence, information in this document may materially change the coding, format and clinical context of patient data. In addition, data may be omitted in some cases. CLINICAL DECISIONS SHOULD BE BASED ON THE PRIMARY CLINICAL RECORDS. [facility] [employer] [facility]. provides no warranty or guarantee of the accuracy or completeness of information in this document.
== END | disposition home or self-care (01) ==
LOC: OPBI 07:08
PROVIDERS: PCP Preventive Medicine Occupational Medicine; Referring Provider Obstetrics & Gynecology; Visit Provider Obstetrics & Gynecology
DX: Z12.31 Encounter for screening mammogram for malignant neoplasm of breast (principal)
CPT/HCPCS: 77063; 77067